=== PATIENT | female | born 1980 | race Caucasian/White ===

== ENCOUNTER 2020-04-06 09:31 | Outpatient (CLI) | payer OTHER, SELFPAY ==
[2020-04-06 10:04] VITALS: BP 116/71; PULSE 86
[2020-04-06 10:15] VITALS: BP 113/66; PULSE 87
[2020-04-06 10:30] VITALS: BP 119/65; PULSE 96
[2020-04-06 10:56] LABS: Basophils Absolute Auto 0.1 K/mm3 (0.0-0.1); Basophils Percent Auto 0.4 % (0.2-1.2); Eosinophils Absolute Auto 0.2 K/mm3 (0-0.3); Eosinophils Percent Auto 1.7 % (0-4.4); Hematocrit 34.1 % (37.0-47.0); Hemoglobin 11.6 g/dL (12.0-15.0); Immature Granulocyte Absolute 0.23 K/mm3 (0.00-0.031); Immature Granulocyte Percent A 1.7 % (0-0.5); Lymphocytes Absolute Auto 1.75 K/mm3 (0.9-3.2); Lymphocytes Percent Auto 12.7 % (18.3-44.2); Mean Corpuscular Volume 94.2 fl (80-100); Monocytes Absolute Auto 0.7 K/mm3 (0.1-0.6); Monocytes Percent Auto 4.9 % (2.6-8.5); Neutrophils Absolute Auto 10.8 K/mm3 (1.3-6.7); Neutrophils Percent Auto 78.6 % (45.5-73.1); Platelet Count Result 280 k/mm3 (150-375); Red Blood Count 3.62 M/mm3 (4.2-5.4); Red Cell Distribution Width 13.1 % (11.5-14.5); White Blood Count 13.8 K/mm3 (4.5-10.0)
--- NOTE | 2020-04-06 11:04 | PM.OBTRLD ---
OB - Triage/Final Diagnosis Visit Information Date of evaluation: 04/06/20 Reason for evaluation: other (htn) Evaluation Laboratory results: Laboratory Tests 04/06/20 10:42 WBC 13.8 H RBC 3.62 L Hgb 11.6 L Hct 34.1 L MCV 94.2 MCH 32.0 MCHC 34.0 RDW 13.1 Plt Count 280 MPV 10.0 Immature Gran % (Auto) 1.7 H Neut % (Auto) 78.6 H Lymph % (Auto) 12.7 L [place] % (Auto) 4.9 Eos % (Auto) 1.7 Baso % (Auto) 0.4 Lymph # (Auto) 1.75 [place] # (Auto) 0.7 H Eos # (Auto) 0.2 Baso # (Auto) 0.1 Abs Immat Gran (auto) 0.23 H Absolute Neuts (auto) 10.8 H Absolute Nucleated RBC 0.0 Nucleated RBC % 0.0 Vital signs: Vital Signs - 24 hr 04/06/20 10:04 04/06/20 10:15 04/06/20 10:30 Pulse Rate 86 87 96 Blood Pressure 116/71 113/66 119/65
[2020-04-06 11:11] LABS: Alanine Aminotransferase 14 U/L (4-35); Albumin Level 3.7 g/dL (3.5-5.1); Alkaline Phosphatase 62 U/L (38-126); Anion Gap 7 mmol/L (8-16); Aspartate Amino Transferase 23 U/L (14-36); Bilirubin,Total 0.3 mg/dL (0.2-1.3); Blood Urea Nitrogen 11 mg/dL (7-17); Calcium 9.4 mg/dL (8.4-10.2); Carbon Dioxide 28 mmol/L (22-30); Chloride 100 mmol/L (98-107); Estimated Glomerular Filt Rate > 60; Glucose 77 mg/dL (65-105); Potassium 4.6 mmol/L (3.4-5.0); Sodium 135 mmol/L (137-145); Uric Acid 2.4 mg/dL (2.5-7.5)
--- NOTE | 2020-04-06 17:14 | PC.NURSE ---
1030 WAS ABLE TO GET BOTH BABIES ON BABY A=145 B=150 ONLY FOR 2 MINUTES. LABS DRAWN AND WILL D/C IF WNL 1150 DR DENNIS ARIZA HERE AND SENT HOME PER Bertin SIMPSON RN WITH D/C INSTRUCTION AND PIH HANDOUT.
== END 2020-04-06 11:55 | disposition home or self-care (01) ==
LOC: ANHOBOP 10:37 → ANHOBPP 04-20 10:39
PROVIDERS: PCP Family Medicine; Visit Provider Obstetrics & Gynecology
DX: O13.9 Gestational [pregnancy-induced] hypertension without significant proteinuria, unspecified trimester (principal); H53.9 Unspecified visual disturbance; Z3A.00 Weeks of gestation of pregnancy not specified
CPT/HCPCS: 36415; 80053; 84550; 85025; 99199

== ENCOUNTER 2020-05-12 15:12 | Outpatient (RCR) | payer OTHER, SELFPAY ==
[2020-05-13] MEDS: RHO(D) IMMUNE GLOBULIN 300 MCG SYRINGE IM (15:16)
== END 2020-08-10 23:59 | disposition home or self-care (01) ==
LOC: ANHLAB 15:12
PROVIDERS: PCP Family Medicine; Visit Provider Obstetrics & Gynecology
DX: Z29.13 Encounter for prophylactic Rho(D) immune globulin (principal); O36.0990 Maternal care for other rhesus isoimmunization, unspecified trimester, not applicable or unspecified; Z3A.00 Weeks of gestation of pregnancy not specified
CPT/HCPCS: 36415; 85461; 90384; 96372; J2790

== ENCOUNTER 2020-07-23 10:21 | Outpatient (RCR) | payer OTHER, SELFPAY ==
[2020-07-05 14:25] VITALS: BP 118/76; PULSE 114
[2020-07-12 13:12] VITALS: BP 119/74; PULSE 109
[2020-07-19 13:59] VITALS: BP 134/75; PULSE 104
[2020-07-23 11:16] VITALS: BP 130/83; PULSE 104
--- NOTE | 2020-07-23 15:12 | PM.IMHP ---
H&P: HPI History of Present Illness Date/Time: 07/23/20 15:12 Chief Complaint: gestational hypertensionhypertension at 35 weeks with twins Narrative: Eda Leo is a 39 year old female whose last menstrual period was 11/14/2019, EDC is 08/30/2020 confirmed by a first-trimester ultrasound presents with twins at 35 weeks gestation for primary section secondary to elevated blood pressures. She has been treated with labetalol and has monochorionic diamniotic twins. Her blood pressures have been worsening and she is now proteinuria. She is admitted for section as she refuses attempted vaginal delivery. Risks and benefits were reviewed in great detail. She had all questions answered in asked to proceed Review of Systems Review of Systems: All systems reviewed & are unremarkable except as noted in HPI and below PMFSH Family History Family History Mother Hypertension Other Diabetes mellitus Social History Social History Smoking status: Never smoker Alcohol intake: never Meds Home Medications and Allergies Home Medications Medication Instructions Recorded Confirmed Type amoxicillin 875 mg-potassium 1 tablet PO Q12H #10 tablet 05/07/19 11/28/19 Rx clavulanate 125 mg tablet citalopram 10 mg tablet 10 mg PO DAILY #30 tablet 11/26/19 11/28/19 Rx fluticasone propionate 50 1 spray NASAL DAILY #18.2 ml 11/28/19 11/28/19 Rx mcg/actuation nasal spray,suspension cetirizine 5 mg-pseudoephedrine ER 1 tablet PO Q12H #60 tablet 05/31/20 Rx 120 mg tablet,extended release,12hr Allergies Allergy/AdvReac Type Severity Reaction Status Date / Time latex Allergy Intermediate Hives / Unverified 11/28/19 09:44 Red Face banana Allergy Unknown Unknown Verified 11/28/19 09:44 egg Allergy Unknown Unknown Verified 11/28/19 09:44 guaifenesin Allergy Unknown HIVES Verified 11/28/19 09:44 lactase Allergy Unknown Unknown Verified 11/28/19 09:44 tree nut Allergy Unknown Unknown Verified 11/28/19 09:44 Vital Signs Vital Signs - 24 hr 07/23/20 11:16 Pulse Rate 104 H Blood Pressure [Left Arm] 130/83 Exam Const: General: no acute distress Eyes: General: appearance normal, both eyes and all related structures Neck: Neck: supple and no JVD Thyroid: thyroid normal Resp: Effort & Inspection: normal respiratory effort Auscultation: clear to auscultation bilaterally Cardio: Rate: regular rate Rhythm: regular rhythm GI: Inspection: non-distended GI Palp: Yes Soft to palpation, No Tenderness to palpation present (GI) and No Guarding due to palpation present (GI) Auscultation: normal bowel sounds : External Female Exam: normal external appearance Speculum Exam - Cervix: normal appearance of the cervix Bimanual exam- vagina & uterus: soft (gravid) Skin: General skin exam: no rashes or lesions noted Extrem: General: normal to inspection and no edema Psych: Mental Status: mental status grossly normal Affect: normal affect Assessment and Plan Additional Plan impression: 35+ week with twins and gestational hypertension Plan: Primary low transverse section
== END 2020-07-27 07:23 | disposition home or self-care (01) ==
LOC: ANHOBOP 10:21
PROVIDERS: Family Provider Family Medicine; PCP Family Medicine; Visit Provider Obstetrics & Gynecology
DX: O30.003 Twin pregnancy, unspecified number of placenta and unspecified number of amniotic sacs, third trimester (principal); Z3A.32 32 weeks gestation of pregnancy; Z3A.33 33 weeks gestation of pregnancy; Z3A.34 34 weeks gestation of pregnancy
CPT/HCPCS: 59025

== ENCOUNTER 2020-07-26 06:27 | Inpatient (IN) | payer OTHER, SELFPAY ==
--- NOTE | 2020-07-23 15:12 | HP_ITS ---
[facility] [address] [place] [address] History & Physical Report Signed Patient: Eda Leo MR#: [id number] : 1980 Acct:[id number] Age/Sex: 39 / F ADM Date: 1 Loc: [facility] Attending Dr: Kalia Jamil MD cc: Kalia Haynes MD; Eder Quinones MD~ H&P: HPI History of Present Illness Date/Time: 07/23/20 15:12 Chief Complaint: gestational hypertensionhypertension at 35 weeks with twins Narrative: Eda Leo is a 39 year old female whose last menstrual period was 11/14/2019, EDC is 08/30/2020 confirmed by a first-trimester ultrasound presents with twins at 35 weeks gestation for primary section secondary to elevated blood pressures. She has been treated with labetalol and has monochorionic diamniotic twins. Her blood pressures have been worsening and she is now proteinuria. She is admitted for section as she refuses attempted vaginal delivery. Risks and benefits were reviewed in great detail. She had all questions answered in asked to proceed Review of Systems Review of Systems: All systems reviewed & are unremarkable except as noted in HPI and below PMFSH Family History Family History Mother Hypertension Other Diabetes mellitus Social History Social History Smoking status: Never smoker Alcohol intake: never Meds Home Medications and Allergies Home Medications Medication Instructions Recorded Confirmed Type amoxicillin 875 mg-potassium 1 tablet PO Q12H #10 tablet 05/07/19 11/28/19 Rx clavulanate 125 mg tablet citalopram 10 mg tablet 10 mg PO DAILY #30 tablet 11/26/19 11/28/19 Rx fluticasone propionate 50 1 spray NASAL DAILY #18.2 ml 11/28/19 11/28/19 Rx mcg/actuation nasal spray,suspension cetirizine 5 mg-pseudoephedrine ER 1 tablet PO Q12H #60 tablet 05/31/20 Rx 120 mg tablet,extended release,12hr Allergies Allergy/AdvReac Type Severity Reaction Status Date / Time latex Allergy Intermediate Hives / Unverified 11/28/19 09:44 Red Face banana Allergy Unknown Unknown Verified 11/28/19 09:44 egg Allergy Unknown Unknown Verified 11/28/19 09:44 guaifenesin Allergy Unknown HIVES Verified 11/28/19 09:44 lactase Allergy Unknown Unknown Verified 11/28/19 09:44 tree nut Allergy Unknown Unknown Verified 11/28/19 09:44 Vital Signs Vital Signs - 24 hr 07/23/20 11:16 Pulse Rate 104 H Blood Pressure [Left Arm] 130/83 Exam Const: General: no acute distress Eyes: General: appearance normal, both eyes and all related structures Neck: Neck: supple and no JVD Thyroid: thyroid normal Resp: Effort & Inspection: normal respiratory effort Auscultation: clear to auscultation bilaterally Cardio: Rate: regular rate Rhythm: regular rhythm GI: Inspection: non-distended GI Palp: Yes Soft to palpation, No Tenderness to palpation present (GI) and No Guarding due to palpation present (GI) Auscultation: normal bowel sounds : External Female Exam: normal external appeara
--- NOTE | 2020-07-23 15:17 | HP_ITS ---
This report was moved to the correct visit 07/26/2020 08:42 and recreated on 08/10/2020 10:45. The original report was signed by Dr. Kalia Chen on 07/23/2020 15:17. H&P: HPI History of Present Illness Date/Time: 07/23/20 15:12 Chief Complaint: gestational hypertensionhypertension at 35 weeks with twins Narrative: Eda Leo is a 39 year old female whose last menstrual period was 11/14/2019, EDC is 08/30/2020 confirmed by a first-trimester ultrasound presents with twins at 35 weeks gestation for primary section secondary to elevated blood pressures. She has been treated with labetalol and has monochorionic diamniotic twins. Her blood pressures have been worsening and she is now proteinuria. She is admitted for section as she refuses attempted vaginal delivery. Risks and benefits were reviewed in great detail. She had all questions answered in asked to proceed Review of Systems Review of Systems: All systems reviewed & are unremarkable except as noted in HPI and below PMFSH Family History Family History Mother Hypertension Other Diabetes mellitus Social History Social History Smoking status: Never smoker Alcohol intake: never Meds Home Medications and Allergies Home Medications Medication Instructions Recorded Confirmed Type amoxicillin 875 mg-potassium 1 tablet PO Q12H #10 tablet 05/07/19 11/28/19 Rx clavulanate 125 mg tablet citalopram 10 mg tablet 10 mg PO DAILY #30 tablet 11/26/19 11/28/19 Rx fluticasone propionate 50 1 spray NASAL DAILY #18.2 ml 11/28/19 11/28/19 Rx mcg/actuation nasal spray,suspension cetirizine 5 mg-pseudoephedrine ER 1 tablet PO Q12H #60 tablet 05/31/20 Rx 120 mg tablet,extended release,12hr Allergies Allergy/AdvReac Type Severity Reaction Status Date / Time latex Allergy Intermediate Hives / Unverified 11/28/19 09:44 Red Face banana Allergy Unknown Unknown Verified 11/28/19 09:44 egg Allergy Unknown Unknown Verified 11/28/19 09:44 guaifenesin Allergy Unknown HIVES Verified 11/28/19 09:44 lactase Allergy Unknown Unknown Verified 11/28/19 09:44 tree nut Allergy Unknown Unknown Verified 11/28/19 09:44 Vital Signs Vital Signs - 24 hr 07/23/20 11:16 Pulse Rate 104 H Blood Pressure [Left Arm] 130/83 Exam Const: General: no acute distress Eyes: General: appearance normal, both eyes and all related structures Neck: Neck: supple and no JVD Thyroid: thyroid normal Resp: Effort & Inspection: normal respiratory effort Auscultation: clear to auscultation bilaterally Cardio: Rate: regular rate Rhythm: regular rhythm GI: Inspection: non-distended GI Palp: Yes Soft to palpation, No Tenderness to palpation present (GI) and No Guarding due to palpation present (GI) Auscultation: normal bowel sounds : External Female Exam: normal external appearance Speculum Exam - Cervix: normal appearance of the cervix Bimanual exam- vagina & uterus: soft (gravid) Skin: General skin exam: no rashes or lesions noted Extrem: General: normal to inspection and no edema Psych: Mental Status: mental status grossly normal Affect: normal affect Assessment and Plan Additional Plan impression: 35+ week with twins and gestational hypertension Plan: Primary low transverse section This dictation may have been done utilizing a voice re
[2020-07-26] VITALS (95 sets, daily range): BP systolic 129–168; BP diastolic 81–100; PULSE 72–106; RESP 12–20; TEMP 36.6–36.9; O2SAT 96–100; BMI 32.1
[2020-07-26] MEDS: LACTATED RINGERS 1,000 ML 125 ML IV CONT ×3 (07:06→10:10)
[2020-07-26 07:08] LABS: Basophils Absolute Auto 0.1 K/mm3 (0.0-0.1); Basophils Percent Auto 0.5 % (0.2-1.2); Eosinophils Absolute Auto 0.1 K/mm3 (0-0.3); Eosinophils Percent Auto 1.4 % (0-4.4); Hematocrit 31.1 % (37.0-47.0); Hemoglobin 10.5 g/dL (12.0-15.0); Immature Granulocyte Absolute 0.09 K/mm3 (0.00-0.031); Immature Granulocyte Percent A 0.9 % (0-0.5); Lymphocytes Absolute Auto 1.69 K/mm3 (0.9-3.2); Lymphocytes Percent Auto 16.8 % (18.3-44.2); Mean Corpuscular HGB Conc 33.8 g/dl (32-36); Mean Corpuscular Hemoglobin 29.6 pg (26-34); Mean Corpuscular Volume 87.6 fl (80-100); Mean Platelet Volume 10.9 fl (7.4-10.4); Monocytes Absolute Auto 0.6 K/mm3 (0.1-0.6); Monocytes Percent Auto 6.2 % (2.6-8.5); Neutrophils Absolute Auto 7.5 K/mm3 (1.3-6.7); Neutrophils Percent Auto 74.2 % (45.5-73.1); Platelet Count Result 318 k/mm3 (150-375); Red Blood Count 3.55 M/mm3 (4.2-5.4); Red Cell Distribution Width 12.1 % (11.5-14.5); White Blood Count 10.1 K/mm3 (4.5-10.0)
--- NOTE | 2020-07-26 07:12 | WPDHPUPDATE1 ---
History and Physical Update Update Date/Time: 07/26/20 07:12 History and Physical has been reviewed, including an updated exam of the patient. There are NO changes in the patient's condition. Risks, benefits, and alternatives have been discussed and questions answered. Patient agrees to proceed with procedure.
[2020-07-26 07:20] LABS: Alanine Aminotransferase 14 U/L (4-35); Albumin Level 3.5 g/dL (3.5-5.1); Alkaline Phosphatase 143 U/L (38-126); Anion Gap 5 mmol/L (8-16); Aspartate Amino Transferase 22 U/L (14-36); Bilirubin,Total 0.3 mg/dL (0.2-1.3); Blood Urea Nitrogen 8 mg/dL (7-17); Calcium 8.8 mg/dL (8.4-10.2); Carbon Dioxide 23 mmol/L (22-30); Chloride 107 mmol/L (98-107); Estimated CRCL calculation 145 ml/min; Estimated Glomerular Filt Rate > 60; Glucose 86 mg/dL (65-105); Potassium 4.2 mmol/L (3.4-5.0); Sodium 135 mmol/L (137-145); Uric Acid 4.4 mg/dL (2.5-7.5)
--- NOTE | 2020-07-26 07:43 | LDADM ---
This patient, Eda Leo, was admitted to Labor/Delivery/Recovery 119 on 07/26/20 at 06:27. Plans for labor, pain management and were discussed with patient. Patient/family oriented to hospital policies and general routines including ID bracelet, bed and alarms, visiting hours, pain management, procedures, bathroom and other care routines, personal items, smoking policy, room service/diet and guest tray routines, infant security routines, and visiting hours. Patient/Family are encouraged to report perceived risks to care and to ask questions if they do not understand what they are told or what they should do. See OBIX for further documentation.
--- NOTE | 2020-07-26 08:32 | WPDANESEPPF ---
Anes - Initial Pre Proc Eval Procedure: Operation Date: 07/26/20 09:00 Proposed Procedures p Primary Section - Kalia Jamil MD Date/Time: 07/26/20 08:32 Surgeon: Kalia Jamil MD Pre Op Diagnosis: Primary C/S Patient Data Age: 39 Gender: F Height: 5 ft 11 in Weight: 104.5 kg Last Vital Signs Pulse 101 H 07/26/20 08:16 BP 149/93 H 07/26/20 08:16 Allergies Allergy/AdvReac Type Severity Reaction Status Date / Time latex Allergy Intermediate Hives / Unverified 11/28/19 09:44 Red Face banana Allergy Unknown Unknown Verified 11/28/19 09:44 egg Allergy Unknown Unknown Verified 11/28/19 09:44 guaifenesin Allergy Unknown HIVES Verified 11/28/19 09:44 lactase Allergy Unknown Unknown Verified 11/28/19 09:44 tree nut Allergy Unknown Unknown Verified 11/28/19 09:44 Home Medications Medication Instructions Recorded Confirmed Type fluticasone propionate 50 1 spray NASAL DAILY #18.2 ml 11/28/19 07/26/20 Rx mcg/actuation nasal spray,suspension cetirizine 5 mg-pseudoephedrine ER 1 tablet PO Q12H #60 tablet 05/31/20 07/26/20 Rx 120 mg tablet,extended release,12hr hydrocodone-acetaminophen 1 tablet PO Q6H PRN #30 tablet 07/26/20 Rx labetalol 07/26/20 History Laboratory Tests 07/26/20 07/26/20 07/26/20 07:00 07:00 07:00 WBC 10.1 K/mm3 H K/mm3 (4.5-10.0) RBC 3.55 M/mm3 L M/mm3 (4.2-5.4) Hgb 10.5 g/dL L g/dL (12.0-15.0) Hct 31.1 % L % (37.0-47.0) MCV 87.6 fl fl (80-100) MCH 29.6 pg pg (26-34) MCHC 33.8 g/dl g/dl (32-36) RDW 12.1 % % (11.5-14.5) Plt Count 318 k/mm3 k/mm3 (150-375) MPV 10.9 fl H fl (7.4-10.4) Immature Gran % (Auto) 0.9 % H % (0-0.5) Neut % (Auto) 74.2 % H % (45.5-73.1) Lymph % (Auto) 16.8 % L % (18.3-44.2) [place] % (Auto) 6.2 % % (2.6-8.5) Eos % (Auto) 1.4 % % (0-4.4) Baso % (Auto) 0.5 % % (0.2-1.2) Lymph # (Auto) 1.69 K/mm3 K/mm3 (0.9-3.2) [place] # (Auto) 0.6 K/mm3 K/mm3 (0.1-0.6) Eos # (Auto) 0.1 K/mm3 K/mm3 (0-0.3) Baso # (Auto) 0.1 K/mm3 K/mm3 (0.0-0.1) Abs Immat Gran (auto) 0.09 K/mm3 H K/mm3 (0.00-0.031) Absolute Neuts (auto) 7.5 K/mm3 H K/mm3 (1.3-6.7) Absolute Nucleated RBC 0.0 K/mm3 K/mm3 (0.0-0.012) Nucleated RBC % 0.0 % % (0.0-0.2) Sodium 135 mmol/L L mmol/L (137-145) Potassium 4.2 mmol/L mmol/L (3.4-5.0) Chloride 107 mmol/L mmol/L (98-107) Carbon Dioxide 23 mmol/L mmol/L (22-30) Anion Gap 5 mmol/L L mmol/L (8-16) BUN 8 mg/dL mg/dL (7-17) Creatinine 0.60 mg/dL L mg/dL (0.7-1.0) Estim Creat Clear Calc 145 ml/min ml/min Estimated GFR > 60 (59 - ) Glucose 86 mg/dL mg/dL (65-105) Uric Acid 4.4 mg/dL mg/dL (2.5-7.5) Calcium 8.8 mg/dL mg/dL (8.4-10.2) Total Bilirubin 0.3 mg/dL mg/dL (0.2-1.3) AST 22 U/L U/L (14-36) ALT 14 U/L U/L (4-35) Alkaline Phosphatase 143 U/L H U/L (38-126) Total Protein 7.0 g/dL g/dL (6.3-8.2) Albumin 3.5 g/dL g/dL (3.5-5.1) RPR Pending Patient hx anesthesia problems: none Family hx anesthesia problems: none PMFSH Past Medical History Medical History (Updated 07/26/20 @ 08:32 by Kalia Dent MD) HTN (hypertension) Twin Family History Family History Mother Hypertension Other Diabetes mellitus Social History Social History Smoking status: Never smoker Second hand tobacco smoke exposure: No Alcohol intake: never Substance use: never Gender identity (if verbalized by the patient): F
[2020-07-26] MEDS: ceFAZolin 2 GM/D5W 50 ML 2 GM/50 ML BAG IVPB (09:44)
[2020-07-26 10:09] LABS: Hepatitis B Surface Antigen Negative (Negative); Rubella IgG Antibody 12.9 IU/ML
[2020-07-26 10:11] LABS: HIV 1/2 Ab P24 Ag Result Negative (Negative)
--- NOTE | 2020-07-26 10:24 | PM.PROC ---
Procedure Note - Detailed Date of procedure: 07/26/20 Pre-op diagnosis: Primary C/S Surgeon: Kalia Jamil MD Postop diagnosis: 35 week twin with gestational hypertension Procedure: Primary low-transverse section EBL: For 640cc Anesthesia: Spinal Findings: Baby a female vertex baby B female breech Complications: None Description of procedure: The patient was prepped draped in normal sterile fashion placed in the dorsal lithotomy position. Under excellent spinal anesthetic the abdomen was entered in a Pfannenstiel fashion progressive layers to the fascia. Fascia incised in the mid upward outward fashion bilaterally. Underlying muscles prior peritoneum L by Rachel clamps. This was entered by sharp see Mario dissection and carried superiorly and inferiorly to the dome of the bladder. Bladder blade was placed. A bladder flap was formed. The bladder blade returned. A low-transverse incision made and baby a delivered in the vertex position anterior posterior shoulder delivered spontaneously cord clamped x2 and cut and passed off the table with excellent cry. Baby B was noted to be breech the membranes were ruptured and the breech was delivered to the maternal left the arms delivered medially to the followed by flexion of the head. The baby passed off the table an extra car. Cord blood was drawn. Placenta delivered intact manually uterus delivering the abdomen wrapped in a moist towel. After assuring no membranes or debris made in the uterus uterus was closed with continuous running 0 Vicryl from lateral edge to lateral edge followed by 2nd imbricating running locking 0 Vicryl from lateral edge to lateral edge. Hemostasis was assured. Ovaries and tubes appeared within normal limits. Uterus returned to the abdomen. The hysterotomy incision inspected 1 last time noted be hemostatic. The laps removed and accounted for and the fascia closed with continuous running 0 Vicryl from lateral edge to midline bilaterally. Irrigation subcutaneous layer and the skin closed with 4 Monocryl glue. Q BL was 640cc. All sponge, needle, instrument counts were correct. There were no immediate complications
[2020-07-26] MEDS: MORPHINE SULFATE (*CRX) 2 MG/ML INJ IV PUSH ×3 (11:52→13:59)
[2020-07-26] MEDS: OXYTOCIN 30 UNITS/NS 500 ML 30 UNITS/500 ML BAG 125 UNITS IV CONT (12:39)
[2020-07-26] MEDS: LABETALOL HCL 100 MG TABLET 200 MG PO ×2 (12:56→21:15)
--- NOTE | 2020-07-26 13:00 | SUR.PHASEI ---
pt remains in recovery to monitor BP.
--- NOTE | 2020-07-26 14:25 | SUR.PHASEI ---
Pt to nursery per stretcher to see .
--- NOTE | 2020-07-26 14:30 | PC.NURSE ---
Called Dr. Zenaida Chen with pt status. Informed of BPs. Orders received.
--- NOTE | 2020-07-26 15:51 | PC.NURSE ---
Patient transferred to post room #290 per stretcher from labor and delivery. Support person present. Oriented to unit, room, information board, rooming in, admission packet and security measures. Patient verbalizes understanding.
[2020-07-26] MEDS: KETOROLAC 30 MG/ML VIAL (*BKC) IV PUSH (17:11)
[2020-07-27] VITALS (8 sets, daily range): BP systolic 134–151; BP diastolic 80–97; PULSE 85–104; RESP 16–18; TEMP 35.9–37.1; O2SAT 96–97
[2020-07-27] MEDS: HYDROcodone/acetaminophen (*CRX) 5-325 MG TABLET 1 TAB PO ×6 (01:01→21:17)
[2020-07-27] MEDS: IBUPROFEN 600 MG TABLET PO ×4 (01:01→23:32)
[2020-07-27] MEDS: diphenhydrAMINE HCl CAP 25 MG CAPSULE PO (01:11)
[2020-07-27] MEDS: LABETALOL HCL 100 MG TABLET 200 MG PO ×3 (05:06→20:55)
[2020-07-27 05:40] LABS: Basophils Absolute Auto 0.1 K/mm3 (0.0-0.1); Basophils Percent Auto 0.5 % (0.2-1.2); Eosinophils Absolute Auto 0.1 K/mm3 (0-0.3); Eosinophils Percent Auto 0.9 % (0-4.4); Hematocrit 28.5 % (37.0-47.0); Hemoglobin 9.5 g/dL (12.0-15.0); Immature Granulocyte Absolute 0.07 K/mm3 (0.00-0.031); Immature Granulocyte Percent A 0.5 % (0-0.5); Lymphocytes Absolute Auto 1.68 K/mm3 (0.9-3.2); Lymphocytes Percent Auto 12.9 % (18.3-44.2); Mean Corpuscular HGB Conc 33.3 g/dl (32-36); Mean Corpuscular Hemoglobin 29.6 pg (26-34); Mean Corpuscular Volume 88.8 fl (80-100); Mean Platelet Volume 11.2 fl (7.4-10.4); Monocytes Absolute Auto 0.8 K/mm3 (0.1-0.6); Monocytes Percent Auto 5.9 % (2.6-8.5); Neutrophils Absolute Auto 10.4 K/mm3 (1.3-6.7); Neutrophils Percent Auto 79.3 % (45.5-73.1); Platelet Count Result 246 k/mm3 (150-375); Red Blood Count 3.21 M/mm3 (4.2-5.4); Red Cell Distribution Width 12.4 % (11.5-14.5); White Blood Count 13.1 K/mm3 (4.5-10.0)
--- NOTE | 2020-07-27 08:07 | PM.OBPNVD ---
OB - PN: Subj Subjective Date/time seen: 07/27/20 08:07 Patient comments: no complaints and pain well controlled OB - PN: Obj Data Labs CBC & Chem 7: 07/27/20 05:11 07/26/20 07:00 Labs: Laboratory Results - last 24 hr 07/26/20 07/26/20 07/26/20 06:59 06:59 07:00 WBC RBC Hgb Hct MCV MCH MCHC RDW Plt Count MPV Immature Gran % (Auto) Neut % (Auto) Lymph % (Auto) [place] % (Auto) Eos % (Auto) Baso % (Auto) Lymph # (Auto) [place] # (Auto) Eos # (Auto) Baso # (Auto) Abs Immat Gran (auto) Absolute Neuts (auto) Absolute Nucleated RBC Nucleated RBC % Hep Bs Antigen Negative HIV 1&2 Ab/P24 Ag 4thGn Negative Rubella IgG Antibody 12.9 Blood Type O Negative Antibody Screen Negative 07/27/20 05:11 WBC 13.1 H RBC 3.21 L Hgb 9.5 L Hct 28.5 L MCV 88.8 MCH 29.6 MCHC 33.3 RDW 12.4 Plt Count 246 MPV 11.2 H Immature Gran % (Auto) 0.5 Neut % (Auto) 79.3 H Lymph % (Auto) 12.9 L [place] % (Auto) 5.9 Eos % (Auto) 0.9 Baso % (Auto) 0.5 Lymph # (Auto) 1.68 [place] # (Auto) 0.8 H Eos # (Auto) 0.1 Baso # (Auto) 0.1 Abs Immat Gran (auto) 0.07 H Absolute Neuts (auto) 10.4 H Absolute Nucleated RBC 0.0 Nucleated RBC % 0.0 Hep Bs Antigen HIV 1&2 Ab/P24 Ag 4thGn Rubella IgG Antibody Blood Type Antibody Screen OB - PN A/P Plan day: 1 Plan: routine care Time Spent With Patient Time: Total time spent is greater than 50% in coordination of care (as documented) at patient's floor/unit and/or counseling patient: Time with patient: less than 15 minutes Review of Systems Review of Systems: All systems reviewed & are unremarkable except as noted in HPI and below Exam Const: General: no acute distress Eyes: General: appearance normal, both eyes and all related structures Neck: Neck: supple and no JVD Thyroid: thyroid normal Resp: Effort & Inspection: normal respiratory effort Auscultation: clear to auscultation bilaterally Cardio: Rate: regular rate Rhythm: regular rhythm GI: Inspection: non-distended GI Palp: Yes Soft to palpation, No Tenderness to palpation present (GI) and No Guarding due to palpation present (GI) Auscultation: normal bowel sounds : General: Yes bladder normal to palpation External Female Exam: normal external appearance Speculum Exam - Vagina: normal vaginal discharge and No vaginal bleeding Speculum Exam - Cervix: nontender Bimanual exam- vagina & uterus: bladder normal to palpation and No Cervical tenderness present OB/external & speculum: No vaginal bleeding Skin: General skin exam: no rashes or lesions noted Extrem: General: normal to inspection and no edema Psych: Mental Status: mental status grossly normal Affect: normal affect
[2020-07-27] MEDS: HYDROcodone/acetaminophen (*CRX) 10-325 MG TABLET 1 TAB PO (08:09)
[2020-07-27] MEDS: DOCUSATE SODIUM 100 MG CAPSULE PO ×2 (08:12→18:04)
[2020-07-27] MEDS: POLYSACCHARIDE IRON COMPLEX 150 MG CAPSULE PO ×2 (08:12→18:04)
[2020-07-27] MEDS: MULTIVIT/MIN/PREN/FOL AC/IRON TABLET 1 TAB PO (08:12)
--- NOTE | 2020-07-27 08:40 | WPDANLDPN2 ---
Anes-Prog Note L&D Date/Time: 07/27/20 08:40 Comfortable throughout: section Neuraxial method: spinal Epidural/Spinal procedure site: clean & non-tender Neuro status: Neuro function grossly intact. Cardiovascular status: normal Respiratory status: normal Airway patency: baseline Mental status: baseline Post-Op hydration status: normal Vital Signs: Last Vital Signs Temp 35.9 C L 07/27/20 05:00 Pulse 95 07/27/20 05:06 Resp 16 07/27/20 05:00 BP 146/93 H 07/27/20 05:00 Pulse Ox 96 07/27/20 05:00 Pain score (VAS): 3 I/O: Intake & Output 07/26/20 07/27/20 07/27/20 23:59 07:59 15:59 Output Total 400 2300 Balance -400 -2300 Post-procedural complaints: none Patient feedback: Patient satisfied with anesthetic care.
--- NOTE | 2020-07-27 08:40 | WPDANLDNPN2 ---
Anes-Prog Note L&D-Neuraxial Date/Time: 07/27/20 08:40 Neuraxial medications: intrathecal PF morphine Opiod-related complaints: none Patient feedback: Patient satisfied with post-operative pain management.
[2020-07-27 10:31] LABS: Rapid Plasma Reagin Non-Reactive (NonReactive)
[2020-07-27] MEDS: SIMETHICONE 80 MG TAB.CHEW PO ×3 (11:28→18:03)
[2020-07-28] MEDS: HYDROcodone/acetaminophen (*CRX) 5-325 MG TABLET 1 TAB PO ×2 (00:42→04:57)
[2020-07-28] MEDS: IBUPROFEN 600 MG TABLET PO (04:56)
[2020-07-28 04:58] VITALS: PULSE 84
[2020-07-28] MEDS: LABETALOL HCL 100 MG TABLET 200 MG PO (04:58)
--- NOTE | 2020-07-28 06:52 | PM.DS ---
DS: Admitting Diagnosis Admitting Diagnosis Admitting Diagnosis: 35 weeks twins gest htn DS: Summary Hospital Course Hospital Course: The patient was admitted for primary section secondary to elevated blood pressures at 35 weeks with twins. Her hospital course was unremarkable. Her blood pressures remained controlled on labetalol 200 mg t.i.d.. The babies were transferred secondary to prematurity. They appear to be doing well on [place] Caio at this point. Time Spent with Patient Time attestation: Total time spent providing and/or coordinating discharge services: Exam Const: General: no acute distress Eyes: General: appearance normal, both eyes and all related structures Neck: Neck: supple and no JVD Thyroid: thyroid normal Resp: Effort & Inspection: normal respiratory effort Auscultation: clear to auscultation bilaterally Cardio: Rate: regular rate Rhythm: regular rhythm GI: Inspection: non-distended GI Palp: Yes Soft to palpation, No Tenderness to palpation present (GI) and No Guarding due to palpation present (GI) Auscultation: normal bowel sounds : General: Yes bladder normal to palpation External Female Exam: normal external appearance Speculum Exam - Vagina: normal vaginal discharge and No vaginal bleeding Speculum Exam - Cervix: nontender Bimanual exam- vagina & uterus: bladder normal to palpation and No Cervical tenderness present OB/external & speculum: No vaginal bleeding Skin: General skin exam: no rashes or lesions noted Extrem: General: normal to inspection and no edema Psych: Mental Status: mental status grossly normal Affect: normal affect DS: Data Data Completed and Pending Pending studies at discharge: Pending at discharge 07/26/20 10:06 Surgical [PTH] Routine Labs on day of discharge: Labs from last 24 hours 07/26/20 07:00 RPR Non-reactive Discharge Plan Discharge Attending physician on discharge: Kalia Jamil Discharging Clinician: Kalia Jamil Patient Disposition: Home, Self-Care Activity: may shower, no straining, pelvic rest and other - see discharge instructions Diet: heart healthy Wound Care Instructions: follow printed instructions and incision open to air Patient Instructions: Antibiotic Form Stand Alone Forms: General Discharge Information Follow-up/Referrals: Kalia Jamil MD [Physician] - Discharge Medications: New hydrocodone-acetaminophen 5-300 mg tablet 1 tablet PO Q6H PRN (Reason: pain) Qty: 30 RF: 0 Continued fluticasone propionate [Flonase Allergy Relief] 50 mcg/actuation spray,suspension 1 spray NASAL DAILY Qty: 18.2 RF: 0 labetalol 200 mg tablet RF: 0 cetirizine-pseudoephedrine [Zyrtec-D] 5-120 mg tablet extended release 12 hr 1 tablet PO Q12H Qty: 60 RF: 2 Date of admission: 07/26/20 06:27 Primary Care Provider: Eder Quinones Admitting Provider: Kalia Jamil Attending physician on admission: Kalia Jamil Condition: Stable
--- NOTE | 2020-07-28 06:55 | PM.OBPNVD ---
OB - PN: Subj Subjective Date/time seen: 07/28/20 06:55 Patient comments: no complaints and pain well controlled OB - PN: Obj Data Labs CBC & Chem 7: 07/27/20 05:11 07/26/20 07:00 Labs: Laboratory Results - last 24 hr 07/26/20 07:00 RPR Non-reactive OB - PN A/P Plan day: 2 Plan: routine care, discharge home and follow up 6 weeks (2 weeks) Time Spent With Patient Time: Total time spent is greater than 50% in coordination of care (as documented) at patient's floor/unit and/or counseling patient: Time with patient: less than 15 minutes Review of Systems Review of Systems: All systems reviewed & are unremarkable except as noted in HPI and below Exam Const: General: no acute distress Eyes: General: appearance normal, both eyes and all related structures Neck: Neck: supple and no JVD Thyroid: thyroid normal Resp: Effort & Inspection: normal respiratory effort Auscultation: clear to auscultation bilaterally Cardio: Rate: regular rate Rhythm: regular rhythm GI: Inspection: non-distended GI Palp: Yes Soft to palpation, No Tenderness to palpation present (GI) and No Guarding due to palpation present (GI) Auscultation: normal bowel sounds : General: Yes bladder normal to palpation External Female Exam: normal external appearance Speculum Exam - Vagina: normal vaginal discharge and No vaginal bleeding Speculum Exam - Cervix: nontender Bimanual exam- vagina & uterus: bladder normal to palpation and No Cervical tenderness present OB/external & speculum: No vaginal bleeding Skin: General skin exam: no rashes or lesions noted Extrem: General: normal to inspection and no edema Psych: Mental Status: mental status grossly normal Affect: normal affect
[2020-07-28] MEDS: HYDROcodone/acetaminophen (*CRX) 10-325 MG TABLET 1 TAB PO (09:15)
[2020-07-28] MEDS: POLYSACCHARIDE IRON COMPLEX 150 MG CAPSULE PO (09:15)
[2020-07-28] MEDS: MULTIVIT/MIN/PREN/FOL AC/IRON TABLET 1 TAB PO (09:15)
[2020-07-28] MEDS: SIMETHICONE 80 MG TAB.CHEW PO (09:15)
[2020-07-28] MEDS: DOCUSATE SODIUM 100 MG CAPSULE PO (09:16)
[2020-07-28 09:30] VITALS: BP 126/84; PULSE 104; RESP 18; TEMP 37.1; O2SAT 96
[2020-07-29 09:01] VITALS: BP 136/89; PULSE 122; RESP 20; TEMP 36.7; O2SAT 97
== END 2020-07-28 10:00 | disposition home or self-care (01) | DRG 788 ==
LOC: ANHLDR 07:16 → ANHOB2 15:56
PROVIDERS: Admitting Provider Obstetrics & Gynecology; PCP Family Medicine; Visit Provider Obstetrics & Gynecology
PROC: 10D00Z1 Extraction of Products of Conception, Low, Open Approach (ICD-10-PCS; CPT 59514; principal; 2020-07-26 09:00)
DX: O14.94 Unspecified pre-eclampsia, complicating childbirth (principal); Z37.2 Twins, both liveborn; Z3A.35 35 weeks gestation of pregnancy; O30.033 Twin pregnancy, monochorionic/diamniotic, third trimester; O99.214 Obesity complicating childbirth; E66.9 Obesity, unspecified
CPT/HCPCS: 36415; 59025; 80053; 84550; 85025; 86592; 86703; 86762; 86850; 86900; 86901; 87340; A9270; G0432; J0131; J0690; J1885; J2270; J2274; J2405; J2590; J7120

== ENCOUNTER 2020-08-25 09:10 | Outpatient (CLI) | payer OTHER, SELFPAY ==
--- NOTE | ~2020-08-25 | US_ITS ---
EXAMINATION: US venous doppler [facility] DATE: 08/25/2020 09:58 INDICATION: Left lower limb swelling. TECHNIQUE: Grayscale ultrasound images without and with compression and Doppler ultrasound images of the left lower extremity veins were obtained. COMPARISON: None. FINDINGS: The visualized portions of left common femoral vein, profunda (deep) femoral vein, femoral vein, popl iteal vein, peroneal veins, posterior tibial veins, and greater saphenous vein outflow are patent. IMPRESSION: 1. No deep venous thrombosis. Reviewed, dictated and finalized at location A.
== END 2020-08-25 09:11 | disposition home or self-care (01) ==
PROVIDERS: PCP Family Medicine; Visit Provider Obstetrics & Gynecology
DX: M79.89 Other specified soft tissue disorders (principal)
CPT/HCPCS: 93971

== ENCOUNTER → 2020-10-12 02:10 | Outpatient (CLI) | payer OTHER, SELFPAY ==
[2020-10-12 19:23] LABS: SARS-CoV-2 RNA PCR Negative
== END ==
PROVIDERS: PCP Family Medicine; Visit Provider Obstetrics & Gynecology
DX: Z01.812 Encounter for preprocedural laboratory examination (principal); Z20.822 Contact with and (suspected) exposure to COVID-19
CPT/HCPCS: C9803; U0003; U0005

== ENCOUNTER 2020-10-12 10:27 | Outpatient (CLI) | payer OTHER, SELFPAY ==
--- NOTE | 2020-10-12 10:30 | ECG_ITS ---
Measurements Intervals [place] Rate: 77 P: [place]: 0 QRS: 146 QRSD: 87 T: 133 QT: 385 QTc: 437 Interpretive Statements SINUS OR ECTOPIC ATRIAL RHYTHM LIMB LEAD REVERSAL BORDERLINE T WAVE ABNORMALITY- INFERIOR LEADS BORDERLINE ECG Electronically Signed On 10-12-2020 11:06:41 CDT by Joaquim Friedman D.O.
[2020-10-12 10:51] LABS: Hematocrit 39.4 % (37.0-47.0); Hemoglobin 12.7 g/dL (12.0-15.0)
== END 2020-10-12 10:28 | disposition home or self-care (01) ==
PROVIDERS: PCP Family Medicine; Visit Provider Obstetrics & Gynecology
DX: Z01.818 Encounter for other preprocedural examination (principal); O72.1 Other immediate postpartum hemorrhage; I10 Essential (primary) hypertension
CPT/HCPCS: 36415; 85014; 85018; 93005

== ENCOUNTER 2020-10-15 01:15 | Day surgery (SDC) | payer OTHER, SELFPAY ==
[2020-10-08 14:17] VITALS: BMI 27.5
--- NOTE | 2020-10-13 09:42 | PM.IMHP ---
H&P: HPI History of Present Illness Date/Time: 10/13/20 09:42 Eda is a 39-year-old female status post delivery of twins whose continued to have vaginal bleeding 8 weeks out from delivery. Her was complicated by elevated blood pressures but these have been controlled. As she continues to bleed and medical therapy has been on helpful she will undergo hysteroscopy/ dilatation curettage. Risks and benefits were reviewed Chief Complaint: vaginal bleeding Review of Systems Review of Systems: All systems reviewed & are unremarkable except as noted in HPI and below PMFSH Past Medical History Medical History HTN (hypertension) Twin Family History Family History Mother Hypertension Other Diabetes mellitus Social History Social History Smoking status: Never smoker Second hand tobacco smoke exposure: No Alcohol intake: never Substance use: never Substance use type: does not use Gender identity (if verbalized by the patient): Female Spiritual care concerns: No Meds Home Medications and Allergies Home Medications Medication Instructions Recorded Confirmed Type fluticasone propionate 50 1 spray NASAL DAILY #18.2 ml 11/28/19 10/08/20 Rx mcg/actuation nasal spray,suspension cetirizine 5 mg-pseudoephedrine ER 1 tablet PO Q12H #60 tablet 05/31/20 10/08/20 Rx 120 mg tablet,extended release,12hr nifedipine 30 mg tablet,extended 30 mg PO DAILY 08/13/20 10/08/20 History release dtvnmgst-ted-Wm-FA 1 tablet PO DAILY 10/08/20 10/08/20 History [] Allergies Allergy/AdvReac Type Severity Reaction Status Date / Time latex Allergy Intermediate Hives / Verified 10/08/20 14:14 Red Face banana Allergy Unknown Unknown Verified 10/08/20 14:14 egg Allergy Unknown Unknown Verified 10/08/20 14:14 guaifenesin Allergy Unknown HIVES Verified 10/08/20 14:14 tree nut Allergy Unknown Unknown Verified 10/08/20 14:14 Exam Const: General: no acute distress Eyes: General: appearance normal, both eyes and all related structures Neck: Neck: supple and no JVD Thyroid: thyroid normal Resp: Effort & Inspection: normal respiratory effort Auscultation: clear to auscultation bilaterally Cardio: Rate: regular rate Rhythm: regular rhythm GI: Inspection: non-distended GI Palp: Yes Soft to palpation, No Tenderness to palpation present (GI) and No Guarding due to palpation present (GI) Auscultation: normal bowel sounds : External Female Exam: normal external appearance Speculum Exam - Vagina: normal appearance of the vagina Speculum Exam - Cervix: normal appearance of the cervix Bimanual exam- vagina & uterus: enlarged OB/external & speculum: Active bleeding present Skin: General skin exam: no rashes or lesions noted Extrem: General: normal to inspection and no edema Psych: Mental Status: mental status grossly normal Affect: normal affect Assessment and Plan Additional Plan impression: bleeding Plan: Hysteroscopy/dilatation curettage
--- NOTE | 2020-10-15 06:09 | WPDHPUPDATE1 ---
History and Physical Update Update Date/Time: 10/15/20 06:09 History and Physical has been reviewed, including an updated exam of the patient. There are NO changes in the patient's condition. Risks, benefits, and alternatives have been discussed and questions answered. Patient agrees to proceed with procedure.
--- NOTE | 2020-10-15 07:52 | WPDANESEPPF ---
Anes - Initial Pre Proc Eval Procedure: Operation Date: 10/15/20 13:00 Proposed Procedures p Hysteroscopy Dilation and Curettage - Kalia Jamil MD Date/Time: 10/15/20 07:52 Surgeon: Kalia Jamil MD Pre Op Diagnosis: post bleeding Patient Data Age: 39 Gender: F Height: 1.82 m Weight: 90.7 kg Allergies Allergy/AdvReac Type Severity Reaction Status Date / Time latex Allergy Intermediate Hives / Verified 10/15/20 11:39 Red Face banana Allergy Unknown Unknown Verified 10/15/20 11:39 egg Allergy Unknown Unknown Verified 10/15/20 11:39 guaifenesin Allergy Unknown HIVES Verified 10/15/20 11:39 tree nut Allergy Unknown Unknown Verified 10/15/20 11:39 Home Medications Medication Instructions Recorded Confirmed Type fluticasone propionate 50 1 spray NASAL DAILY #18.2 ml 11/28/19 10/08/20 Rx mcg/actuation nasal spray,suspension cetirizine 5 mg-pseudoephedrine ER 1 tablet PO Q12H #60 tablet 05/31/20 10/08/20 Rx 120 mg tablet,extended release,12hr nifedipine 30 mg tablet,extended 30 mg PO DAILY 08/13/20 10/15/20 History release pypehgso-prt-Yx-FA 1 tablet PO DAILY 10/08/20 10/08/20 History [] hydrocodone-acetaminophen 1 tablet PO Q4H PRN #20 tablet 10/15/20 Rx Patient hx anesthesia problems: none Family hx anesthesia problems: none PMFSH Past Medical History Medical History HTN (hypertension) Twin Family History Family History Mother Hypertension Other Diabetes mellitus Social History Social History Smoking status: Never smoker Second hand tobacco smoke exposure: No Alcohol intake: never Substance use: never Substance use type: does not use Living arrangements: with family Gender identity (if verbalized by the patient): Female Spiritual care concerns: No Anes - Eval Final PreProcedure Day of Procedure 10/15/20 07:52 Patient weight: overweight Heart: regular rate and rhythm Lungs: clear to auscultation and normal air movement Airway: Mallampati scale class III Neurological: alert and oriented Last oral intake: >/= 8 hours ASA classification: II Emergent: no Anesthetic plan: proceed Anesthesia type and monitoring: general GIVS and standard monitoring Informed Consent: The patient's anesthetic plan and its attendant risks and benefits were discussed with the patient/family/POA. Questions were solicited and answers provided to the satisfaction of the patient/family/POA.
[2020-10-15 11:18] VITALS: BP 136/87; PULSE 78; RESP 16; TEMP 36.6; O2SAT 99
[2020-10-15] MEDS: ACETAMINOPHEN 500 MG TABLET 1000 MG PO (11:24)
[2020-10-15] MEDS: LACTATED RINGERS 1,000 ML 30 ML IV CONT (11:25)
[2020-10-15] MEDS: LIDOCAINE HCL 1% LOCAL INJ 10 ML VIAL 50 ML INFILTRATE (12:56)
--- NOTE | 2020-10-15 12:59 | PM.PROC ---
Procedure Note - Detailed Date of procedure: 10/15/20 Pre-op diagnosis: post bleeding Surgeon: Kalia Jamil MD Postop diagnosis: bleeding/uterine polyp Procedure: Hysteroscopy/dilatation curettage/polypectomy Anesthesia: IV sedation and local EBL: 5cc Complications: None Findings: Small uterine polyp. Tissue consistent with possible placenta. Description of procedure: Patient prepped draped in the normal sterile fashion placed in dorsal lithotomy position. Under excellent IV sedation weighted speculum was placed in posterior fornix of vagina. Anterior lip of the cervix grasped with single-tooth tenaculum and 2.5cc of 1% xylocaine anesthesia placed at 2, 4, 10, 8:00 a.m. of the cervix. Uterus sounded to 9cm. Serial dilatation with fragmented dilators performed followed passage of the 5mm visualizing hysteroscope. Normal saline was used as visualizing medium. Thick irregular tissue was noted at that appeared to be decidual lysed tissue. Small uterine polyp was present in this was plucked without difficulty. A good grating sound was heard after scraping the uterus. The instruments were removed. All sponge, needle, instrument counts were correct. There were no immediate complications
[2020-10-15 13:01] VITALS: BP 123/73; PULSE 73; RESP 16; O2SAT 98
[2020-10-15 13:30] VITALS: BP 126/82; PULSE 67; RESP 16; O2SAT 99
[2020-10-15 13:55] VITALS: BP 131/86; PULSE 79; RESP 16
== END 2020-10-15 14:03 | disposition home or self-care (01) ==
PROVIDERS: PCP Family Medicine; Visit Provider Obstetrics & Gynecology
PROC: 0U5B8ZZ Destruction of Endometrium, Via Natural or Artificial Opening Endoscopic (ICD-10-PCS; CPT 58563; principal; 2020-10-15 13:00)
DX: O72.0 Third-stage hemorrhage (principal); N84.0 Polyp of corpus uteri; I10 Essential (primary) hypertension
CPT/HCPCS: 59160; 36415; 85014; 85018; 88305; 93005; A9270; C9803; J2250; J2405; J2704; J3010; J7030; J7120; U0003; U0005

== ENCOUNTER 2022-05-03 20:07 | Emergency (ER) | payer OTHER, SELFPAY ==
[2022-05-03 20:40] VITALS: BP 152/96; PULSE 90; RESP 20; TEMP 36.9; O2SAT 100
[2022-05-03 22:12] VITALS: PULSE 82; RESP 16; O2SAT 99
--- NOTE | 2022-05-03 23:40 | ED.FEMALEGU ---
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 Patient reports she sat down on a chair tonight and accidentally sat on a hard plastic straw. She believes the straw punctured her labia. She was wearing pants, but states the straw did not puncture the pants. She states the wound bled slightly at first, but is now longer bleeding. Denies vaginal bleeding. Related Data Home Medications Medication Instructions Recorded Confirmed nifedipine 30 mg tablet,extended 30 mg PO DAILY 08/13/20 05/04/21 release ngkewlwf-mda-Vm-FA 1 mg 1 tablet PO DAILY 10/08/20 05/04/21 tablet cetirizine 10 mg capsule (Zyrtec) 10 mg PO DAILY PRN 05/04/21 05/04/21 Allergies Allergy/AdvReac Type Severity Reaction Status Date / Time latex Allergy Intermediate Hives / Verified 05/03/22 20:44 Red Face banana Allergy Unknown Unknown Verified 05/03/22 20:44 egg Allergy Unknown Unknown Verified 05/03/22 20:44 guaifenesin Allergy Unknown HIVES Verified 05/03/22 20:44 tree nut Allergy Unknown Unknown Verified 05/03/22 20:44 Review of Systems Review of Systems: CONSTITUTIONAL: Denies fever, chills, or sweats. GASTROINTESTINAL: Denies abdominal pain, nausea, vomiting. GENITOURINARY: Denies vaginal bleeding. SKIN: Reports wound to right labia. All systems reviewed & are unremarkable except as noted in HPI and below PMFSH Past Medical History Medical History HTN (hypertension) Twin Surgical History Surgical History (Updated 05/04/22 @ 00:03 by Fartun Dailey PA-C) No pertinent past surgical history Family History Family History Mother Hypertension Other Diabetes mellitus Social History Social History Smoking status: Never smoker Second hand tobacco smoke exposure: No Alcohol intake: never Substance use: never Substance use type: does not use Gender identity (if verbalized by the patient): Female Sexual Orientation (if Verbalized by the Patient): Straight or Heterosexual Spiritual care concerns: No Exam Narrative: GENERAL: Well appearing, well-nourished, non-toxic, in no acute distress. HEAD: Normocephalic, atraumatic. NECK: Supple. No adenopathy, no masses. RESPIRATORY: Airway patent, respirations nonlabored. CARDIOVASCULAR: Regular rate and rhythm without murmurs, rubs, or gallops. Radial pulses 2+ and equal bilaterally. PELVIC: Small circular puncture hole, almost appears like punch biopsy, to external surface of right labia minora. Does not extend through to the internal surface of labia minora. No active bleeding. Otherwise normal external genitalia. MUSCULOSKELETAL: Moves all extremities. Strength/ROM intact without gross deformities. SKIN: Warm, dry, normal color. No rashes. NEURO: A&O X3. Speech clear. Cranial nerves II-XII grossly intact. Steady gait. No ataxic movements. PSYCHIATRIC: Appropriate mood and affect. Normal interaction. Course Consultations Consultation #1: Discussed case with Dr. Zenaida Chen, TELEVISION CAMERAMAN, advised if wound is not actively bleeding, no need to suture it. Will follow in office. Date: 05/04/22 Vital Signs Vital signs: Vital Signs Temperature 98.4 F 05/03/22 20:40 Pulse Rate 90 05/03/22 20:40 Respiratory Rate 20 05/03/22 20:40 Blood Pressure 152/96 H 05/03/22 20:40 Pulse Oximetry 100 05/03/22 20:40 Oxygen Delivery Room Air 05/03/22 20:40 Temperature 98.4 F 05/03/22 20:40 Pulse Rate 82 05/03/22 22:12 Respiratory Rate 16 05/03/22 22:12 Blood Pressure 152/96 H 05/03/22 20
== END 2022-05-04 | disposition home or self-care (01) ==
PROVIDERS: Emergency Provider Physician Assistant; PCP Family Medicine
DX: S31.43XA Puncture wound without foreign body of vagina and vulva, initial encounter (principal); I10 Essential (primary) hypertension; W22.8XXA Striking against or struck by other objects, initial encounter
CPT/HCPCS: 99283

== ENCOUNTER 2022-05-13 12:35 | Emergency (ER) | payer OTHER, SELFPAY ==
[2022-05-13 12:43] VITALS: BP 140/78; PULSE 93; RESP 16; TEMP 37.1; O2SAT 99
--- NOTE | 2022-05-13 12:51 | ED.URI ---
HPI - URI/Sore Throat General Chief Complaint: Upper Respiratory Infection Stated Complaint: sore throat Time Seen by Provider: 05/13/22 13:09 Source: patient and RN notes reviewed Mode of arrival: ambulatory Limitations: no limitations History of Present Illness HPI Narrative: 41-year-old female presents with concern for 3-4 day history sinus pressure, congestion, body aches, sore throat, low-grade fever. 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 Reports she took a COVID test on day 1 of illness and today that were negative. She reports student in her class has strep throat MD elicited complaint: cough and sore throat Related Data Home Medications Medication Instructions Recorded Confirmed nifedipine 30 mg tablet,extended 30 mg PO DAILY 08/13/20 05/13/22 release cetirizine 10 mg capsule (Zyrtec) 10 mg PO DAILY PRN Allergy Symptoms 05/04/21 05/13/22 Allergies Allergy/AdvReac Type Severity Reaction Status Date / Time latex Allergy Intermediate Hives / Verified 05/03/22 20:44 Red Face banana Allergy Unknown Unknown Verified 05/03/22 20:44 egg Allergy Unknown Unknown Verified 05/03/22 20:44 guaifenesin Allergy Unknown HIVES Verified 05/03/22 20:44 tree nut Allergy Unknown Unknown Verified 05/03/22 20:44 Review of Systems Review of Systems: CONSTITUTIONAL: Reports malaise, chills, sweats, or fever. EYES: Denies visual changes, redness, or discharge. ENT: Reports rhinorrhea, congestion, and sore throat. CARDIOVASCULAR: Denies chest pain, palpitations, or edema. RESPIRATORY: Reports cough. Denies dyspnea. GASTROINTESTINAL: Denies abdominal pain, nausea, vomiting, diarrhea SKIN: Denies rash or itching. MUSCULOSKELETAL: Reports myalgia. NEUROLOGIC: Denies headache. All systems reviewed & are unremarkable except as noted in HPI and below PMFSH Past Medical History Medical History HTN (hypertension) Twin Surgical History Surgical History (Updated 05/04/22 @ 00:03 by Fartun Dailey PA-C) No pertinent past surgical history Family History Family History Mother Hypertension Other Diabetes mellitus Social History Social History Smoking status: Never smoker Second hand tobacco smoke exposure: No Alcohol intake: never Substance use: never Substance use type: does not use Gender identity (if verbalized by the patient): Female Sexual Orientation (if Verbalized by the Patient): Straight or Heterosexual Spiritual care concerns: No Comments At time of signature, agree with nursing past medical, surgical, social and family history. There is no relevant family history pertinent to the presenting complaint Exam Narrative: GENERAL: Well-appearing, well-nourished, and in no acute distress. HEAD: Normocephalic EYES: PERRLA, conjunctivae clear ENT: Nares clear, turbinates edematous and erythematous, clear discharge. Mucous membranes moist. TM pearly soliz with dull light reflex bilaterally; no tragal tenderness. Oropharynx not erythematous without lesions. Tonsils not enlarged and without exudate, no drooling, no hoarseness, no trismus, uvula midline. NECK: Supple. No lymphadenopathy CHEST: Clear to auscultation, breath sounds equal. No wheezing, rhonchi, rales, or stridor. No respiratory distress, speaks in full sentences. HEART: Regular rate and rhythm. No murmur heard. SKIN: Warm, dry, no rash. NEURO: Alert and oriented x3. PSYCH: Normal mood and affect Course Course Emergency Course: Patient is aware of diagnosis, understands and agrees to treatment plan. Anticipatory guidance given. Patient agrees to follow-up as directed and is aware of reasons to seek care at the emergency department. Portions of this record may have been created with voice recognition software Level of Care: [facility] [place] Care Visit Vital
== END 2022-05-13 13:45 | disposition home or self-care (01) ==
PROVIDERS: Emergency Provider Nurse Practitioner
DX: J10.1 Influenza due to other identified influenza virus with other respiratory manifestations (principal); I10 Essential (primary) hypertension
CPT/HCPCS: 87081; 87804; 87880; 99213; G0463

== ENCOUNTER 2023-01-02 08:29 | Outpatient (CLI) | payer OTHER, SELFPAY ==
--- NOTE | 2023-01-17 15:06 | WPDHOMESLEEP ---
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 Her medical comorbidities include depression, hypertension, seasonal allergies, vertigo and dizziness. For years she has never felt rested. She has always felt sleepy, even in childhood and as a teenager. She has snored for the last 14 years. Her tells her that she stops breathing every night. There is a family history of sleep issues with her father also having loud snoring. She frequently awakens from sleep feeling short of breath. She occasionally awakens at night with heartburn, belching or coughing. She always snores loudly enough that others complain about it. She always has difficulty sleeping with a cold. She always wakes up gasping for breath at night. She occasionally sweats excessively at night. She occasionally notices her heart pounding or beating irregularly night. She frequently falls asleep during the day, occasionally falls asleep involuntarily frequently feels that she could fall asleep at the wheel but she has not done so to date. She does not have loss of muscle tone with strong emotion. She always has daytime difficulties due to her excessive sleepiness. She does not feel paralyzed on waking or falling asleep. She does not have vivid dreamlike scenes upon awakening or falling asleep. She does not feel afraid to go to sleep. She occasionally has nightmares. She occasionally remembers her dreams. She rarely has racing thoughts. She frequently feels sad or depressed. She rarely has anxiety. She does not have muscular tension. She rarely notices parts of her body jerking. She rarely kicks at night, rarely has crawling and aching feelings in her legs, rarely has any kind of leg pain at night. She rarely has morning jaw pain. She does not grind her teeth during sleep. She frequently is bothered by pain during the day. She never is awakened by pain at night. She occasionally wakes up feeling stiff in the morning. She rarely wakes up with sore achy muscles. She frequently wakes up with pain in the neck and spine. She has memory problems, fatigue, concentration difficulties and she takes antacids regularly. Normal bedtime is 10:30 p.m. falling asleep within a few minutes. She typically wakes up 3-5 times at night to go urinate, let her dog out, get her babies a bottle. She has 3 children, an 8-year-old and 2-year-old twins. She wakes the morning between 5 and 6:00 a.m.. On weekends, she goes to bed a little later, 11:00 p.m., still wakes in the morning between 5 and 6:00 a.m.. She takes naps in the afternoon on occasion. In general, a short nap lasting 10-15 minutes is not refreshing. She is usually drowsy for 3 hours or longer fear. She feels better later in the day, not the morning. Habits: Never smoked tobacco. Caffeine, 3-4 servings a day. No alcohol. No recreational substances. [facility] Past Medical History Medical History BMI 25.0-25.9,adult delivery delivered HTN (hypertension) Twin Surgical History Surgical History No pertinent past surgical history Family History Family History Mother Hypertension Diabetes mellitus Father Hyperlipidemia Sibling No problems noted. Social History Social History Smoking status: Never smoker Second hand
[2023-01-17 15:19] VITALS: BMI 25.9
== END 2023-01-03 14:22 | disposition home or self-care (01) ==
LOC: ANHCSM 08:30
PROVIDERS: PCP Family Medicine; Visit Provider Family Medicine
DX: G47.30 Sleep apnea, unspecified (principal)
CPT/HCPCS: 95800

== ENCOUNTER 2023-01-05 14:33 | Emergency (ER) | payer OTHER, SELFPAY ==
--- NOTE | ~2023-01-05 | XR_ITS ---
EXAMINATION: XR chest 2V 01/05/2023 15:27 INDICATION: Chest pain. Elevated heart rate. PROCEDURE: 2 view chest COMPARISON: No prior studies for comparison. FINDINGS: The lungs are clear. The cardiomediastinal silhouette is within normal limits. There are no pleural effusions. There is no pneumothorax suspected. IMPRESSION: 1: NO ACUTE CARDIOPULMONARY DISEASE. Reviewed, dictated and finalized at location A.
--- NOTE | ~2023-01-05 | CT_ITS ---
EXAMINATION: CT BRAIN W/O DATE: 01/05/2023 18:20 INDICATION: Paresthesias TECHNIQUE: Computed tomography (CT) of the head was performed without intravenous contrast. The dose- length product was 605.33 mGy-cm. Automated exposure control and iterative reconstruction technique w ere employed. COMPARISON: No prior studies for comparison. FINDINGS: Normal brain parenchymal volume for age. Normal soliz-white differentiation. No acute intrac ranial hemorrhage, infarction, mass or mass effect. No ventriculomegaly or midline shift. Midline sagittal images demonstrate a normal corpus callosum, c raniovertebral junction and sella turcica. Basilar cisterns are patent. Paranasal sinuses and mastoids are pneumatized. No depressed skull fractures. IMPRESSION: 1. No acute intracranial abnormality. Reviewed, dictated and finalized at location A.
--- NOTE | 2023-01-05 14:36 | ECG_ITS ---
Measurements Intervals [place] Rate: 73 P: 35 [place]: 123 QRS: 73 QRSD: 92 T: 51 QT: 415 QTc: 460 Interpretive Statements SINUS RHYTHM INCOMPLETE RIGHT BUNDLE BRANCH BLOCK BORDERLINE ECG COMPARED TO ECG 10/12/2020 10:44:29 SINUS RHYTHM NOW PRESENT Electronically Signed On 01-05-2023 20:03:43 CDT by Joaquim Friedman D.O.
[2023-01-05 14:43] VITALS: BP 131/69; PULSE 72; RESP 18; TEMP 36.8; O2SAT 100
[2023-01-05 15:09] LABS: Basophils Absolute Auto 0.1 K/mm3 (0.0-0.1); Basophils Percent Auto 0.6 % (0.2-1.2); Eosinophils Absolute Auto 0.3 K/mm3 (0-0.3); Eosinophils Percent Auto 2.2 % (0-4.4); Hematocrit 37.6 % (37.0-47.0); Hemoglobin 12.5 g/dL (12.0-15.0); Immature Granulocyte Absolute 0.04 K/mm3 (0.00-0.031); Immature Granulocyte Percent A 0.3 % (0-0.5); Lymphocytes Absolute Auto 1.52 K/mm3 (0.9-3.2); Lymphocytes Percent Auto 12.8 % (18.3-44.2); Mean Corpuscular HGB Conc 33.2 g/dl (32-36); Mean Corpuscular Hemoglobin 30.1 pg (26-34); Mean Corpuscular Volume 90.6 fl (80-100); Monocytes Absolute Auto 0.6 K/mm3 (0.1-0.6); Monocytes Percent Auto 4.7 % (2.6-8.5); Neutrophils Absolute Auto 9.4 K/mm3 (1.3-6.7); Neutrophils Percent Auto 79.4 % (45.5-73.1); Platelet Count Result 277 k/mm3 (150-375); Red Blood Count 4.15 M/mm3 (4.2-5.4); White Blood Count 11.8 K/mm3 (4.5-10.0)
[2023-01-05 15:20] LABS: Partial Thromboplastin Time 27.1 SECONDS (22.3-36.8)
[2023-01-05 15:23] LABS: Alanine Aminotransferase 16 U/L (6-35); Albumin Level 4.3 g/dL (3.5-5.1); Alkaline Phosphatase 68 U/L (38-126); Anion Gap 6 mmol/L (8-16); Aspartate Amino Transferase 24 U/L (14-36); Bilirubin,Total 0.3 mg/dL (0.2-1.3); Blood Urea Nitrogen 9 mg/dL (7-17); Calcium 9.1 mg/dL (8.4-10.2); Carbon Dioxide 30 mmol/L (22-30); Chloride 101 mmol/L (98-107); Estimated CRCL calculation 118 ml/min; Estimated Glomerular Filt Rate > 60; Glucose 96 mg/dL (65-110); Lipase 55 U/L (23-300); Potassium 3.7 mmol/L (3.4-5.0); Sodium 137 mmol/L (137-145)
[2023-01-05 15:34] LABS: Troponin I < 0.012 ng/mL (0.000-0.034)
[2023-01-05 17:35] VITALS: BP 163/97; PULSE 75; RESP 16; O2SAT 100
[2023-01-05 17:41] LABS: Magnesium 1.8 mg/dL (1.6-2.3)
[2023-01-05 18:00] VITALS: BP 148/88; PULSE 72; RESP 18; O2SAT 99
--- NOTE | 2023-01-05 18:09 | ED.ARRPALP ---
HPI - Arrhythmia/Palpitations General Chief Complaint: Arrhythmia/Palpitations Stated Complaint: increased heart rate Time Seen by Provider: 01/05/23 17:13 Source: patient Mode of arrival: EMS Limitations: no limitations History of Present Illness HPI narrative: This is a 42-year-old female that presents to the emergency department for an episode of heart racing. Reports she was lying down and started to feel like her heart was beating really hard. Reports she started to feel tingling in both of her arms and her hands started to cramp. She also reports having chest pain. EMS was called for her to be evaluated. Reports she feels fine now. Does report she has had a sore throat. Denies fever, cough, shortness of breath, or lower extremity edema. Related Data Home Medications Medication Instructions Recorded Confirmed nifedipine 30 mg tablet,extended 30 mg PO DAILY 08/13/20 11/09/22 release cetirizine 10 mg capsule (Zyrtec) 10 mg PO DAILY PRN Allergy Symptoms 05/04/21 11/09/22 Allergies Allergy/AdvReac Type Severity Reaction Status Date / Time latex Allergy Intermediate Hives / Verified 01/05/23 17:43 Red Face banana Allergy Unknown Unknown Verified 01/05/23 17:43 egg Allergy Unknown Unknown Verified 01/05/23 17:43 guaifenesin Allergy Unknown HIVES Verified 01/05/23 17:43 tree nut Allergy Unknown Unknown Verified 01/05/23 17:43 Review of Systems Review of Systems: CONSTITUTIONAL: Denies fever EYES: Denies visual changes ENT: Reports sore throat CARDIOVASCULAR: Reports chest pain, palpitations. Denies edema. RESPIRATORY: Denies cough or dyspnea. NEUROLOGIC: Reports numbness. Denies weakness. All systems reviewed & are unremarkable except as noted in HPI and below [facility] Past Medical History Medical History BMI 25.0-25.9,adult delivery delivered HTN (hypertension) Twin Surgical History Surgical History No pertinent past surgical history Family History Family History Mother Hypertension Diabetes mellitus Father Hyperlipidemia Sibling No problems noted. 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 HEAD: Normocephalic, atraumatic. EYES: PERRLA and EOMI. ENT: Nares clear, no rhinorrhea or epistaxis. Mucous membranes moist. Oropharynx without tonsillar hypertrophy exudate or other lesions. Bilateral TMs pearly soliz non-bulging NECK: Supple. No adenopathy or masses. No JVD CHEST: Clear to auscultation. No respiratory distress. No wheezes rales or rhonchi HEART: Regular rate and rhythm. No murmur heard. Normal peripheral pulses. EXTREMITIES: Normal range of motion. No edema. Strength equal in bilateral upper and lower extremities (5/5) SKIN: Warm, dry, no rash. NEURO: No focal deficits. Alert and oriented x3. Cranial nerves 2-12 grossly intact PSYCH: Normal mood and affect Course Course Emergency Course: Connie
[2023-01-05 18:20] LABS: Troponin I < 0.012 ng/mL (0.000-0.034)
[2023-01-05] MEDS: SODIUM CHLORIDE 0.9% IV 500 ML 999 ML IV CONT (18:32)
[2023-01-05 18:46] LABS: Strep Group A RT-PCR DETECTED (Negative)
[2023-01-05 19:01] LABS: Influenza A QL RT-PCR Negative (Negative); Influenza B QL RT-PCR Negative (Negative); SARS-CoV-2 RNA PCR Negative (Negative)
[2023-01-05] MEDS: ONDANSETRON INJ 4 MG/2 ML VIAL IV PUSH (19:23)
[2023-01-05 19:24] VITALS: BP 147/92; PULSE 79; RESP 18; O2SAT 100
[2023-01-05] MEDS: FLUCONAZOLE 150 MG TABLET PO (20:52)
[2023-01-05] MEDS: IBUPROFEN 600 MG TABLET PO (20:52)
== END 2023-01-05 21:32 | disposition home or self-care (01) ==
PROVIDERS: Preventive Medicine Aerospace Medicine; Emergency Provider Physician Assistant; PCP Family Medicine
DX: J02.0 Streptococcal pharyngitis (principal); R00.2 Palpitations; Z20.822 Contact with and (suspected) exposure to COVID-19; I10 Essential (primary) hypertension; I45.10 Unspecified right bundle-branch block
CPT/HCPCS: 36415; 70450; 71046; 80053; 83690; 83735; 84484; 85025; 85610; 85730; 87636; 87651; 93005; 96361; 96374; 99284; A9270; J2405; J7040

== ENCOUNTER 2023-01-26 09:54 | Outpatient (CLI) | payer OTHER, SELFPAY ==
--- NOTE | 2023-02-16 15:17 | WPDSLEEPSTUD ---
Sleep Study Date of Study: 01/26/23 Ordering Provider: Eder Quinones MD Interpreting Physician: Ariadne Singh MD Sleep Study Type: CPAP Titration Height: 1.78 m Weight: 83.915 kg Body Mass Index: 26.5 Neck Circumference (inches): 14 [place]field: 24 Reason for Sleep Study * WatchPat on 01/02/2023 showed AHI 28.9 with desaturation to 80%, 17.4 minutes spent below 88% She presents for CPAP titration. 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 ? Her medical comorbidities include depression, hypertension, seasonal allergies, vertigo and dizziness. For years she has never felt rested.? She has always felt sleepy, even in childhood and as a teenager.? She has snored for the last 14 years.? Her tells her that she stops breathing every night.? There is a family history of sleep issues with her father also having loud snoring.? She frequently awakens from sleep feeling short of breath.? She occasionally awakens at night with heartburn, belching or coughing.? She always snores loudly enough that others complain about it.? She always has difficulty sleeping with a cold.? She always wakes up gasping for breath at night.? She occasionally sweats excessively at night.? She occasionally notices her heart pounding or beating irregularly night.? She frequently falls asleep during the day, occasionally falls asleep involuntarily frequently feels that she could fall asleep at the wheel but she has not done so to date.? She does not have loss of muscle tone with strong emotion.? She? always has daytime difficulties due to her excessive sleepiness.? She does not feel paralyzed on waking or falling asleep.? She does not have vivid dreamlike scenes upon awakening or falling asleep.? She does not feel afraid to go to sleep.? She occasionally has nightmares.? She occasionally remembers her dreams.? She rarely has racing thoughts.? She frequently feels sad or depressed.? She rarely has anxiety.? She does not have muscular tension.? She rarely notices parts of her body jerking.? She rarely kicks at night, rarely has crawling and aching feelings in her legs, rarely has any kind of leg pain at night.? She rarely has morning jaw pain.? She does not grind her teeth during sleep.? She frequently is bothered by pain during the day.? She never is awakened by pain at night.? She occasionally wakes up feeling stiff in the morning.? She rarely wakes up with sore achy muscles.? She frequently wakes up with pain in the neck and spine.? She has memory problems, fatigue, concentration difficulties and she takes antacids regularly. Normal bedtime is 10:30 p.m. falling asleep within a few minutes.? She typically wakes up 3-5 times at night to go urinate, let her dog out, get her babies a bottle.? ? She has 3 children, an 8-year-old and 2-year-old twins.? She wakes the morning between 5 and 6:00 a.m..? On weekends, she goes to bed a little later, 11:00 p.m., still wakes in the morning between 5 and 6:00 a.m..? She takes naps in the afternoon on occasion.? In general, a short nap lasting 10-15 minutes is not refreshing.? She is usually drowsy for 3 hours or longer fear.? She feels better later in the day, not the morning. Habits: ? Never smoked tobacco.? Caffeine, 3-4 servings a day.? No alcohol.? No recreational substances. [facility] Past Medical History Medical History (Updated 02/16/23 @ 17:07 by Ariadne Singh MD) BMI 25.0-25.9,adult delivery delivered HTN (hypertension) Obstructive sleep apnea Twin Surgical History Surgical History No pertinent past surgical history Family History Family History Mother Hypertension Diabetes mellitus Father Hyperlipidemia Sibling No problems noted. Social History Social History Smoking status: Nev
[2023-02-16 17:48] VITALS: BMI 26.5
== END 2023-01-27 08:08 | disposition home or self-care (01) ==
LOC: ANHCSM 09:56
PROVIDERS: PCP Family Medicine; Visit Provider Family Medicine
DX: G47.33 Obstructive sleep apnea (adult) (pediatric) (principal)
CPT/HCPCS: 95811

== ENCOUNTER 2023-02-05 13:56 | Outpatient (CLI) | payer OTHER, SELFPAY ==
--- NOTE | 2023-02-15 12:18 | WPDHOLTEREM ---
Holter/Event Monitor Holter/Event Monitor Date of procedure: 02/05/23 Holter/Event Procedure: 48 Hr Holter Monitor Indications: Palpitations Conclusion: 1. 48 hour holter monitor on 02/05/23. 2. Underlying rhythm is sinus rhythm. HR range 52-138 bpm; average HR 85 bpm. 3. There are 61 premature supraventricular complexes and 3 supraventricular couplets. No supraventricular tachycardia. 4. There is 1 premature ventricular complex. No ventricular tachycardia. 5. No sinoatrial or atrioventricular blocks. No significant pauses greater than 2 seconds. 6. No symptoms available for correlation.
== END 2023-02-05 13:57 | disposition home or self-care (01) ==
PROVIDERS: PCP Family Medicine; Visit Provider Nurse Practitioner Family
DX: R00.2 Palpitations (principal)
CPT/HCPCS: 93225; 93226

== ENCOUNTER 2024-12-31 10:36 | Outpatient (CLI) | payer OTHER, SELFPAY ==
--- OUTSIDE RECORDS SUMMARY | 2024-12-31 10:48 | XMS_ITS | Referral Summary ---
Author Organization [facility] Address [address] [place] [address] Care Team Providers Care Passenger Car Inspector Name Role Phone Eder Quinones MD Primary Care Provider Allergies Active Allergy Reactions Criticality Noted Date Comments Melon Itching Low 05/26/2021 Itchy throat. Guaifenesin Hives Medium 05/26/2021 Tree Nuts Itching Low 05/26/2021 Itching in throat Active Problems Problem Noted Date Diagnosed Date COVID-19 05/26/2021 Social History Tobacco Use Types Packs/Day Years Used Date Smoking Tobacco: Never Assessed Comments Unknown Sex and Gender Information Value Date Recorded Sex Assigned at Not on file Legal Sex Female 3:39 PM CDT Gender Identity Not on file Sexual Orientation Not on file Last Filed Vital Signs Vital Sign Reading Time Taken Comments Blood Pressure 139/87 05/26/2021 1:50 PM SKID WORKER Pulse 57 05/26/2021 1:50 PM SKID WORKER Temperature 36.4 C (97.5 F) 05/26/2021 1:50 PM SKID WORKER Respiratory Rate 16 05/26/2021 1:50 PM SKID WORKER Oxygen Saturation 100% 05/26/2021 1:50 PM SKID WORKER Inhaled Oxygen Concentration - - Weight 86.2 kg (190 lb) 05/26/2021 11:35 AM SKID WORKER Height 180.3 cm (5' 11) 05/26/2021 11:35 AM SKID WORKER Body Mass Index 26.5 05/26/2021 11:35 AM SKID WORKER Plan of Treatment Not on file Insurance [facility] CHOICE PLUS Care Teams Passenger Car Inspector Relationship Specialty Start Date End Date Eder Quinones MD PCP - General Family Medicine 05/26/21
--- OUTSIDE RECORDS SUMMARY | 2024-12-31 10:48 | XMS_ITS | Clinical Summary ---
Author Organization [facility] Address [address] [place] [address] Care Team Providers Care Heat Transfer Technician Name Role Phone Eder Quinones MD Primary Care Provider [phone] Allergies Active Allergy Reactions Criticality Noted Date Comments Melon Itching Low 05/26/2021 Itchy throat. Guaifenesin Hives Medium 05/26/2021 Tree Nuts Itching Low 05/26/2021 Itching in throat Active Problems Problem Noted Date Diagnosed Date COVID-19 05/26/2021 Medical History Medical History Date Comments Covid-19 Social History Tobacco Use Types Packs/Day Years Used Date Smoking Tobacco: Never Assessed Comments Unknown Sex and Gender Information Value Date Recorded Sex Assigned at Not on file Legal Sex Female 3:39 PM CDT Gender Identity Not on file Sexual Orientation Not on file Obstetrics History Last Filed Vital Signs Vital Sign Reading Time Taken Comments Blood Pressure 139/87 05/26/2021 1:50 PM INTERNAL CONTROLS ANALYST Pulse 57 05/26/2021 1:50 PM INTERNAL CONTROLS ANALYST Temperature 36.4 C (97.5 F) 05/26/2021 1:50 PM INTERNAL CONTROLS ANALYST Respiratory Rate 16 05/26/2021 1:50 PM INTERNAL CONTROLS ANALYST Oxygen Saturation 100% 05/26/2021 1:50 PM INTERNAL CONTROLS ANALYST Inhaled Oxygen Concentration - - Weight 86.2 kg (190 lb) 05/26/2021 11:35 AM INTERNAL CONTROLS ANALYST Height 180.3 cm (5' 11) 05/26/2021 11:35 AM INTERNAL CONTROLS ANALYST Body Mass Index 26.5 05/26/2021 11:35 AM INTERNAL CONTROLS ANALYST Plan of Treatment Not on file Insurance [facility] [place] [id number] [facility] CHOICE PLUS Care Teams Heat Transfer Technician Relationship Specialty Start Date End Date Eder Quinones MD PCP - General Family Medicine 05/26/21
== END 2024-12-31 10:37 | disposition home or self-care (01) ==
LOC: ANHSURGERY 10:39
PROVIDERS: PCP Family Medicine; Visit Provider Obstetrics & Gynecology
DX: N83.202 Unspecified ovarian cyst, left side (principal)
CPT/HCPCS: 36415; 86850; 86900; 86901

== ENCOUNTER 2025-01-02 00:07 | Day surgery (SDC) | payer OTHER, SELFPAY ==
[2024-12-30 12:43] VITALS: BMI 24.7
--- NOTE | 2024-12-30 12:45 | PC.NURSE ---
Report to the Outpatient Waiting Room, entrance under the green pavilion located off [facility], at time _0730_ on date _[id number]_. Planned Procedure Time: _0930_.? Time changes happen often and if your time is changed the preop area will call you the afternoon before. - You and your visitor will be asked to self-screen and do not enter if you have any COVID symptoms. Please call surgeon if you need to reschedule. - A mask is optional within the hospital at this time. Patients may have clear liquids (water, carbonated beverages, clear teas, apple juice) until 3 hours prior to surgery with a maximum of 20 ounces. - No food from midnight until time of surgery and no smoking, or chewing tobacco (or any form of nicotine). No chewing gum, candy or mints. Take only the following medications with a SIP of water on the morning of surgery: ___Citalopram DO NOT STOP ANY OF YOUR OTHER PRESCRIPTION MEDICATIONS PRIOR TO SURGERY EXCEPT THE FOLLOWING Hold all vitamins and supplements for 3 days per anesthesiologist. Medications to discontinue per physician Date to take last dodd__[id number] Please no make-up, nail togolese, hairspray, perfume, deodorant, or body powder the day of surgery.? No jewelry (including any body piercings) or valuables the day of surgery, leave them at home.? Please take a shower or bath the night before, or the morning of, surgery with an antibacterial soap.? Wear comfortable, loose fitting clothing. - Jewelry must be removed prior to entering the operating room.? Rings and piercings that are not removed may be cut off. - The hospital will not accept responsibility for valuables.? - Please leave all valuables, including medications, at home the day of surgery. If you are going home after surgery, a licensed automation driver must drive you home.? - NO public transportation without another adult if you receive anesthesia. - We recommend that an adult stay with you for 24 hours following discharge. - We also recommend that you do not drive, make important decision, drink alcoholic beverages, or take any drugs that were not prescribed by your health care provider for at least 24 hours after your discharge time. Follow any additional instructions given to you from your surgeon. Telephone instructions given to ___Tina__and asked if any additional questions and then verbalized understanding. Patient advised to call surgeon office or pre surgery nurse liaison [phone] if any additional questions.
--- NOTE | 2024-12-30 12:48 | PM.IMHP ---
H&P: HPI History of Present Illness Date/Time: 12/30/24 12:48 Chief Complaint: Pelvic pain left ovarian cyst Narrative: This is a 44-year-old 2 para 2 admitted for laparoscopy and left ovarian cystectomy possible left salpingo-oophorectomy secondary to complex left ovarian cyst and severe pain risks and benefits reviewed including not exclusive of , aspiration pneumonia, bleeding, transfusion, perforation injury to bowel, bladder, ureters, or other internal organs with need for open laparotomy. She received the [employer] handout entitled laparoscopy. She had all questions answered. She asked to proceed Review of Systems Review of Systems: CONSTITUTIONAL: Denies fever EYES: Denies visual changes ENT: Reports sore throat CARDIOVASCULAR: Reports chest pain, palpitations. Denies edema. RESPIRATORY: Denies cough or dyspnea. NEUROLOGIC: Reports numbness. Denies weakness. All systems reviewed & are unremarkable except as noted in HPI and below PMFSH Past Medical History Medical History Gastric ulcer due to nonsteroidal antiinflammatory drug (NSAID) therapy Obstructive sleep apnea delivery delivered Need for lipid screening Twin HTN (hypertension) Surgical History Surgical History No pertinent past surgical history Family History Family History Mother Hypertension Diabetes mellitus Father Hyperlipidemia Sibling No problems noted. 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 Gender identity (if verbalized by the patient): Female Sexual Orientation (if Verbalized by the Patient): Straight or Heterosexual Spiritual care concerns: No Meds Home Medications and Allergies Home Medications ?Medication ?Instructions ?Recorded ?Confirmed ?Type ondansetron HCl 8 mg tablet See Rx Instructions .Route 03/28/24 12/30/24 Rx .COMPLEX #30 tabs meclizine 25 mg tablet 25 mg PO BID PRN dizziness #30 tabs 04/21/24 12/30/24 Rx citalopram 40 mg tablet See Rx Instructions .Route 09/11/24 12/30/24 Rx .COMPLEX #90 tabs fluconazole 150 mg tablet 150 mg PO ONCE #2 tabs 11/19/24 12/30/24 Rx cetirizine 5 mg-pseudoephedrine ER 1 tablet PO Q12H PRN allergy 11/28/24 12/30/24 Rx 120 mg tablet,extended symptoms #30 tabs release,12hr (Zyrtec-D) lisdexamfetamine 50 mg capsule 50 mg PO DAILY #30 caps 12/09/24 12/30/24 Rx (Vyvanse) famotidine 20 mg tablet 20 mg PO BID #60 tabs 12/24/24 12/30/24 Rx acetaminophen 500 mg tablet 1,000 mg PO Q6H PRN pain 12/30/24 12/30/24 History cranberry 500 mg capsule 500 mg PO DAILY 12/30/24 12/30/24 History hydrocodone 5 mg-acetaminophen 325 1 tablet PO Q6H PRN pain 12/30/24 12/30/24 History mg tablet lactobacillus combo no.11 15 1 cap PO DAILY 12/30/24 12/30/24 History billion cell sprinkle capsule (Probiotic) vitamin D3 125 mcg (5,000 cap PO 12/30/24 History unit)-vitamin K2 90 mcg capsule Allergies Allergy/AdvReac Type Severity Reaction Status Date / Time latex Allergy Intermediate Hives / Verified 12/30/24 12:31 Red Face banana Allergy Unknown Unknown Verified 12/30/24 12:31 egg Allergy Unknown Unknown Verified 12/30/24 12:31 guaifenesin Allergy Unknown HIVES Verified 12/30/24 12:31 tree nut Allergy Unknown Unknown Verified 12/30/24 12:31 Exam Narrative: GENERAL: Well-appearing, well-nourished, and in no acute distress. HEAD: Normocephalic, atraumatic. EYES: PERRLA and EOMI. ENT: Nares clear, no rhinorrhea or epistaxis. Mucous membranes moist. Oropharynx without tonsillar hypertrophy exudate or other lesions. Bilateral TMs pearly soliz non-bulging NECK: Supple. No adenopathy or masses. No JVD CHEST: Clear to auscultation. No respiratory distress. No wheezes rales or rhonchi HEART: Regular rate and rhythm. No murmur heard. Normal peripheral pulses. EXTREMITIES: Normal range of motion. No edema. Strength equal in bilateral upper and lower extremities (5/5) SKIN: Warm, dry, no rash. NEURO: No focal deficits. Alert and oriented x3. Cranial nerves 2-12 grossly intact PSYCH: Normal mood and affect Assessment and Plan Assessment and plan (1) Pelvic pain: Code(s): R10.2 - Pelvic and perineal pain Status: Acute (2) Left ovarian cyst: Code(s): N83.202 - Unspecified ovarian cyst, left side Status: Acute Plan Will proceed with laparoscopic left ovarian cystectomy possible left oophorectomy
[2025-01-02] VITALS (9 sets, daily range): BP systolic 133–167; BP diastolic 76–100; PULSE 59–74; RESP 14–18; TEMP 36.2–36.4; O2SAT 97–100
--- OUTSIDE RECORDS SUMMARY | 2025-01-02 00:10 | XMS_ITS | Clinical Summary ---
Author Organization [facility] Address [address] [place] [address] Care Team Providers Care Hooker On Name Role Phone Eder Quinones MD Primary Care Provider [phone] Allergies Active Allergy Reactions Criticality Noted Date [...] Comments Blood Pressure 139/87 05/26/2021 1:50 PM ELECTRICIAN APPRENTICE Pulse 57 05/26/2021 1:50 PM ELECTRICIAN APPRENTICE Temperature 36.4 C (97.5 F) 05/26/2021 1:50 PM ELECTRICIAN APPRENTICE Respiratory Rate 16 05/26/2021 1:50 PM ELECTRICIAN APPRENTICE Oxygen Saturation 100% 05/26/2021 1:50 PM ELECTRICIAN APPRENTICE Inhaled Oxygen Concentration - - Weight 86.2 kg (190 lb) 05/26/2021 11:35 AM ELECTRICIAN APPRENTICE Height 180.3 cm (5' 11) 05/26/2021 11:35 AM ELECTRICIAN APPRENTICE Body Mass Index 26.5 05/26/2021 11:35 AM ELECTRICIAN APPRENTICE Plan of Treatment Not on file Insurance [facility] [place] [id number] [facility] CHOICE PLUS Care Teams Hooker On Relationship Specialty Start Date End Date Eder Quinones MD PCP - General Family Medicine 05/26/21
--- OUTSIDE RECORDS SUMMARY | 2025-01-02 00:10 | XMS_ITS | Continuity of Care Document ---
Author Organization [facility] Address [address] [place] [address] Phone Care Team Providers Care Laborer Beam House Name Role Phone Nikki Guzmán Unavailable Unavailable Procedures Procedure Date Removal Of Skin Lesion Eye Exam Established Pt Eye Exam, New Patient Advance Directives Directive Yes / No Effective Date File Name No Information Encounters Encounter Description Practice Location Reason(s) For Visit Diagnoses Date Provider Providers Copied on Encounter Merged with [facility], [address] [place] [address] [address], [place], [place], [id number], tel:[phone] [facility] No Information 0 Arielle Hernadez [address] , [address], [place], [place], [facility], . tel:[phone] Merged with [facility], [address] [place] [address] [address], [place], [place], [id number], tel:[phone] [facility] No Information 0 Arielle Hernadez [address] , [address], [place], [place], [facility], . tel:[phone] Merged with [facility], [address] [place] [address] [address], [place], [place], [id number], tel:[phone] [facility] No Information [address]. [address] , [address], [place], [address], [place]. tel:[phone] Family History Family Member Type Diagnosis Age At Onset No Information Payers Payer name Insurance type Covered constitution party ID Authoriza tion(s) No Information Social History Type Description Quantity Date Captured Comments Sex Female Smoking Status No Information Chief Complaint And Reason For Visit No Information Reason For Referral Reason For Referral No Information History Of Present Illness Encounter Date Complaint History Of Prese nt Illness No Information Functional Status Date Functional Assessmen t No Information Instructions Date Instruction Additional Infor mation No Information Assessments Type Assessment Date No Information Patient Care Teams Name Effective Dates (start - stop) Status Members No Information
--- OUTSIDE RECORDS SUMMARY | 2025-01-02 00:10 | XMS_ITS | Referral Summary ---
Author Organization [facility] Address [address] [place] [address] Care Team Providers Care Medical Office Assistant Name Role Phone Eder Quinones MD Primary Care Provider [phone] Allergies Active Allergy Reactions Criticality Noted Date [...] Comments Blood Pressure 139/87 05/26/2021 1:50 PM INTERNATIONAL TRADE SPECIALIST Pulse 57 05/26/2021 1:50 PM INTERNATIONAL TRADE SPECIALIST Temperature 36.4 C (97.5 F) 05/26/2021 1:50 PM INTERNATIONAL TRADE SPECIALIST Respiratory Rate 16 05/26/2021 1:50 PM INTERNATIONAL TRADE SPECIALIST Oxygen Saturation 100% 05/26/2021 1:50 PM INTERNATIONAL TRADE SPECIALIST Inhaled Oxygen Concentration - - Weight 86.2 kg (190 lb) 05/26/2021 11:35 AM INTERNATIONAL TRADE SPECIALIST Height 180.3 cm (5' 11) 05/26/2021 11:35 AM INTERNATIONAL TRADE SPECIALIST Body Mass Index 26.5 05/26/2021 11:35 AM INTERNATIONAL TRADE SPECIALIST Plan of Treatment Not on file Insurance [facility] CHOICE PLUS Care Teams Medical Office Assistant Relationship Specialty Start Date End Date Eder Quinones MD PCP - General Family Medicine 05/26/21
--- NOTE | 2025-01-02 06:39 | WPDHPUPDATE1 ---
History and Physical Update Update Date/Time: 01/02/25 06:39 History and Physical has been reviewed, including an updated exam of the patient. There are NO changes in the patient's condition. Risks, benefits, and alternatives have been discussed and questions answered. Patient agrees to proceed with procedure.
--- NOTE | 2025-01-02 08:33 | WPDANESEPPF ---
Anes - Initial Pre Proc Eval Procedure: Operation Date: 01/02/25 09:30 Proposed Procedures p Laparoscopic Left Ovarian Cystectomy, Possible Left Salpingo-oophorectomy - Kalia Chen MD Date/Time: 01/02/25 08:33 Surgeon: Kalia Chen MD Pre Op Diagnosis: pel pain, heav bleeding, lt ovarian cyst Patient Data Age: 44 Gender: F Height: 1.8 m Weight: 80.5 kg Allergies Allergy/AdvReac Type Severity Reaction Status Date / Time latex Allergy Intermediate Hives / Verified 12/30/24 12:31 Red Face banana Allergy Unknown Unknown Verified 12/30/24 12:31 egg Allergy Unknown Unknown Verified 12/30/24 12:31 guaifenesin Allergy Unknown HIVES Verified 12/30/24 12:31 tree nut Allergy Unknown Unknown Verified 12/30/24 12:31 Home Medications ?Medication ?Instructions ?Recorded ?Confirmed ?Type ondansetron HCl 8 mg tablet See Rx Instructions .Route 03/28/24 12/30/24 Rx .COMPLEX #30 tabs meclizine 25 mg tablet 25 mg PO BID PRN dizziness #30 tabs 04/21/24 12/30/24 Rx citalopram 40 mg tablet See Rx Instructions .Route 09/11/24 12/30/24 Rx .COMPLEX #90 tabs fluconazole 150 mg tablet 150 mg PO ONCE #2 tabs 11/19/24 12/30/24 Rx cetirizine 5 mg-pseudoephedrine ER 1 tablet PO Q12H PRN allergy 11/28/24 12/30/24 Rx 120 mg tablet,extended symptoms #30 tabs release,12hr (Zyrtec-D) lisdexamfetamine 50 mg capsule 50 mg PO DAILY #30 caps 12/09/24 12/30/24 Rx (Vyvanse) famotidine 20 mg tablet 20 mg PO BID #60 tabs 12/24/24 12/30/24 Rx acetaminophen 500 mg tablet 1,000 mg PO Q6H PRN pain 12/30/24 12/30/24 History cranberry 500 mg capsule 500 mg PO DAILY 12/30/24 12/30/24 History hydrocodone 5 mg-acetaminophen 325 1 tablet PO Q6H PRN pain 07/22/25 07/22/25 History mg tablet lactobacillus combo no.11 15 1 cap PO DAILY 12/30/24 12/30/24 History billion cell sprinkle capsule (Probiotic) vitamin D3 125 mcg (5,000 cap PO 12/30/24 History unit)-vitamin K2 90 mcg capsule hydrocodone 5 mg-acetaminophen 325 1 tablet PO Q4H PRN pain #20 tabs 01/02/25 Rx mg tablet Patient hx anesthesia problems: post op nausea/vomiting Family hx anesthesia problems: none Results Review: All pre-operative results and documents have been reviewed as part of the pre-operative evaluation. [facility] Past Medical History Medical History Gastric ulcer due to nonsteroidal antiinflammatory drug (NSAID) therapy Obstructive sleep apnea delivery delivered Need for lipid screening Twin HTN (hypertension) Surgical History Surgical History No pertinent past surgical history Family History Family History Mother Hypertension Diabetes mellitus Father Hyperlipidemia Sibling No problems noted. 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 Gender identity (if verbalized by the patient): Female Sexual Orientation (if Verbalized by the Patient): Straight or Heterosexual Spiritual care concerns: No Anes - Eval Final PreProcedure Day of Procedure 01/02/25 08:33 Patient weight: normal Heart: regular rate and rhythm Lungs: clear to auscultation Airway: Mallampati scale class II Neurological: alert and oriented Last oral intake: >/= 8 hours ASA classification: III Emergent: yes Anesthetic plan: proceed Anesthesia type and monitoring: general ETT and standard monitoring Results Review: All pre-operative results and documents have been reviewed as part of the pre-operative evaluation. Informed Consent: The patient's anesthetic plan and its attendant risks and benefits were discussed with the patient/family/POA. Questions were solicited and answers provided to the satisfaction of the patient/family/POA.
[2025-01-02] MEDS: KETOROLAC 15 MG/ML VIAL (*BKC) IV PUSH (08:45)
[2025-01-02] MEDS: LACTATED RINGERS 1,000 ML 30 ML IV CONT ×2 (08:45→09:34)
[2025-01-02] MEDS: SCOPOLAMINE 1 MG PATCH 1 PATCH TRANSDERM (08:45)
[2025-01-02] MEDS: ACETAMINOPHEN 500 MG TABLET 1000 MG PO (08:45)
[2025-01-02 09:17] LABS: BEDSIDEPREGUCG Negative (Negative)
--- NOTE | 2025-01-02 09:19 | S_PTH ---
PATIENT: Eda Leo LOC: [facility] U#:[id number] AGE/SX: 44/F ROOM: RE01/02/[address]: Kalia Chen MD : 1980 BED: DIS: 01/02/2025 SPEC #: [id number] RECD: 01/02/25 11:01 STATUS: JOHN REQ #: [id number] WILMER: 01/02/25 09:[address]: Kalia Haynes DEPT: [facility] Surgical RECD BY: Abiola Collins ENTERED: 01/02/25 11:01 SP TYPE: Surgical OTHR DR: Eder Quinones MD Tissues: A - Ovary Procedures: Hematoxylin and Eosin Stain Gross and Microscopic Level 4
--- NOTE | 2025-01-02 09:32 | P.OP_ITS ---
Procedure Note - Detailed Date of Procedure 01/02/25 Pre-op Diagnosis pel pain, heav bleeding, lt ovarian cyst Post-op Diagnosis Same (Same with endometrioma and endometriosis) Procedure Performed Laparoscopic left salpingo-oophorectomy and destruction of endometriosis Surgeon Kalia Chen MD Anesthesia General Indications This is 44-year-old female with a complex left ovarian cyst and pelvic pain Findings Large left endometrioma. Endometrial implant along the left and right uterosacral ligaments. Normal-appearing right ovary and tube. Normal-appearing appendix gallbladder and liver edge Description of Procedure The patient was prepped and draped in the normal sterile fashion placed in the dorsal lithotomy position. Under excellent general trach anesthesia a weighted speculum placed in posterior fornix vagina. Anterior lip of the cervix grasped with a single-tooth tenaculum. Arias's cannula inserted the cervix to be attached later for uterine manipulation. After emptying the bladder of clear urine the weighted speculum was removed the gloves were changed. Supraumbilical incision made and the Veress needle passed in the abdomen. Abdomen filled with CO2 gas [id number]. The 5mm trocar advanced under direct visualization using the abdomen scope and no injury seen. Patient placed in Trendelenburg and a suprapubic incision made. The 5mm trocar advanced under direct visualization assuring no injury. A large endometrioma was seen in the left endometrial implants along the left uterine the right left uterosacral ligaments. Left lower quadrant incision made and the 10mm trocar advanced under direct visualization assuring no injury. Using the LigaSure the infundibulopelvic structure was skeletonized clamping burning cutting until the ovary and tube on the left were completely excised. This was placed in Endo- Catch and removed through the left lower quadrant. Vigorous irrigation undertaken to clear the small areas of endometriosis were cauterized at 35 w per 2nd irrigation undertaken to clear and hemostasis was assured. The lower site removed. The gas removed from the abdomen. The upper site removed. The incisions closed with 4-0 Monocryl and glue. Instruments removed from the vagina and the patient was awakened. She went to recovery in satisfactory condition. All sponge, needle, instrument counts were correct. There were no immediate complications Estimated Blood Loss 5 Drains No Packing No Pathology Yes Complications No immediate complications Condition Stable Disposition PACU
[2025-01-02] MEDS: oxyCODONE HCL (*CRX) 5 MG TAB IR PO (11:05)
== END 2025-01-02 12:08 | disposition home or self-care (01) ==
PROVIDERS: PCP Family Medicine; Visit Provider Obstetrics & Gynecology
PROC: (CPT 49320; principal; 2025-01-02 09:30)
DX: N80.122 Deep endometriosis of left ovary (principal); N80.3C3 Endometriosis of bilateral uterosacral ligament(s), unspecified depth; N93.9 Abnormal uterine and vaginal bleeding, unspecified; R10.2 Pelvic and perineal pain
CPT/HCPCS: 58661; 58662; 88305; A9270; J0330; J1100; J1885; J2250; J2405; J2704; J3010; J7120